=== PATIENT | male | born 1955 | race Caucasian/White ===

== ENCOUNTER → 2022-12-05 10:17 | Outpatient (BNVA) | payer MEDICARE, SELFPAY | PROVIDERS: PCP Physician Assistant Medical; Referring Provider Physician Assistant Medical; Visit Provider Internal Medicine | DX: I49.8 Other specified cardiac arrhythmias (principal); R00.2 Palpitations | CPT/HCPCS: 99202 ==

== ENCOUNTER 2022-12-28 14:02 | Outpatient (REF) | payer MEDICARE, SELFPAY ==
[2022-12-28 15:36] LABS: Anion Gap 15 (12-20); Blood Urea Nitrogen 19 mg/dL (9-16); Calcium 9.8 mg/dL (8.4-10.2); Carbon Dioxide 25 mmol/L (22-29); Chloride 106 mmol/L (96-108); Estimated Glomerular Filt Rate 55; Glucose Random 101 mg/dL (60-115); Potassium 4.8 mmol/L (3.3-5.1); Sodium 141 mmol/L (135-145)
== END 2022-12-28 14:03 | disposition home or self-care (01) ==
LOC: HO.LAB 14:02
PROVIDERS: PCP Physician Assistant Medical; Visit Provider Internal Medicine
DX: I49.8 Other specified cardiac arrhythmias (principal)
CPT/HCPCS: 36415; 80048

== ENCOUNTER → 2023-01-05 10:01 | Outpatient (REF) | payer MEDICARE, SELFPAY ==
--- NOTE | 2023-01-05 10:05 | CA_ITS ---
Transthoracic Echocardiogram Patient (Last, First, Middle): Rm Corona, Gender: Male Date of : 1955 Age: 67 Procedure Date: 01/05/2023 Procedure Type: Transthoracic Echocardiogram Location: OP Height: 180.34 cm Weight: 122.47 kg BSA: 2.40 m2 Heart Rate: bpm BP: 127 / 71 mmHg Cell Attendant: IMELDA Referring MD: Cosme Sanchez MD Command Center Officer: Sebastien Weaver MD Symptoms: I49.8 - Other specified cardiac arrhythmias Study Quality: Adequate ECG Rhythm: Sinus Conclusions: - 1. Normal LV systolic function with mild LVH with impaired relaxation filling pattern 2. Moderate to severe calcific aortic stenosis 3. Normal RV systolic pressure 4. No gross pericardial effusion Findings Left Ventricle Normal left ventricular size and systolic function. There is mildly increased left ventricular wall thickness. The visually estimated ejection fraction is between 60-65%. Spectral Doppler is indicative of an impaired relaxation filling pattern. E/E prime ratio is between 8 and 15 consistent with indeterminate filling pressures. Right Ventricle Normal right ventricular cavity size and systolic function. Atria The left atrium is normal in size. There is lipomatous hypertrophy of the interatrial septum. Interatrial shunt cannot be excluded. The right atrium is normal in size. Aortic Valve There is moderate calcification of the aortic valve. There is moderate thickening of the aortic valve. There is moderate to severe aortic valve stenosis. The mean gradient is 27 mmHg. The aortic valve area is 1.06 cm2. There is no aortic valve regurgitation. Dimensionless index is calculated at 0.28 Mitral Valve There is mild anterior and posterior mitral leaflet thickening. There is mild mitral annular calcification. There is trace mitral valve regurgitation. There is no mitral valve stenosis. Pulmonic Valve The pulmonic valve was not well visualized. Tricuspid Valve Likely normal tricuspid valve structure and function. There is mild tricuspid valve regurgitation. The right ventricular systolic pressure is 34 mmHg. Normal right atrial pressure. There is no evidence of pulmonary hypertension. Great Vessels All visible segments of the aorta are normal in size. The pulmonary artery was not well visualized. Venous The inferior vena cava is normal in size and collapses greater than 50% with inspiration. Pericardium/Pleural There is no evidence of pericardial effusion. Prior Study Comparison No prior study available for comparison. Measurements 2D Linear Measurements IVSd: 1.24 0.6-0.9/0.6-1.0 cm LVIDd: 4.38 3.9-5.3/4.2-5.9 cm LVIDd Index: 1.83 2.4-3.2/2.2-3.1 cm/m2 LVIDs: 2.88 2.0-3.6 cm LVPWd: 1.37 0.7-1.1 cm LA Diam: 2.80 2.7-3.8/3.0-4.0 cm LAIDs Index: 1.17 1.5-2.3 cm/m2 LV Mass: 267.80 67-162/88-224 g LV Mass Index: 111.59 43-95/49-115 g/m2 LVOT Diam: 2.20 3.0+(-)1.3 cm 2D Systolic Function EF 4C: 65.90 >55% EF 2C: 58.20 >55% EF BiP: 61.10 >55% Mitral Valve MV VTI: 0.55 MV Pk Terrence: 1.37 MV Mn Terrence: 0.89 MV Pk Grad: 8.00 MV Mn Grad: 4.00 MV Pk E: 1.14 MV PK A: 1.32 MV Decel Time: 360.00 E/A: 0.90 E'Lateral: 8.16 E'Medial: 7.29 E/E' Med: 15.60 E/E' Lat: 14.00 PHT: 105.00 MVA PHT: 2.10 MVA Continuity: 1.61 Decel Dupage: 3.17 Aortic Valve AoV Pk Terrence: 3.42 AoV Mn Terrence: 2.47 AoV VTI: 0.84 AoV Pk Grad: 47.00 Aov Mn Grad: 27.00 JUAN A Cont.VTI: 1.06 LVOT LVOT Pk Terrence: 0.88 LVOT Mn Terrence: 0.62 LVOT VTI: 0.24 LVOT Pk Grad: 3.00 LVOT Mn Grad: 2.00 LVOT Diam: 2.20 LVOT Area: 3.80 Diastolic Function MV Pk E: 1.14 MV Pk A: 1.32 E/A: 0.90 E'Medial: 7.29 E/E' Med: 15.60 E' Laterial: 8.16 E/E' Lat: 14.00 Right Ventricle TAPSE (mm): 19.80 TVS' Terrence: 12.40 Tricuspid Valve TR Pk Terrence: 2.78 TR Pk Grad: 31.00 RA Press: 3.00 RVSP: 34.00 Great Vessels Aorta Sinus of Valsalva: 3.35 2.0-3.[address] [place]: 2.45 1.7-3.4 cm Ao Asc: 3.40 2.1-3.4 cm Ao Arch: 2.90 Updated in Other Vendor System with Status of Final Sebastien Weaver MD electronically signed on 01/07/2023 12:49:06 PM with status of Final
--- NOTE | 2023-01-05 10:05 | HM_ITS ---
Cardiac event monitor Indication: Paroxysmal atrial fibrillation Technique: Patient was hooked up to cardiac event monitor on 01/05/2023 for total period of 30 days with a compliance rate of 96%. Findings: Baseline was normal sinus rhythm with no significant pauses. Minimal heart rate of 60 beats per minute maximum heart rate 170 beats per minute noted. No episodes of atrial fibrillation noted. There were occasional PACs noted with total burden of 1.3% and rare PVCs noted with total burden of less than 1%. There were few episodes of paroxysmal atrial tachycardia noted but very rare. Patient reported 3 events of irregular heartbeat that correlated with either with PVCs or PACs. Patient had 5 recordings of palpitations or skipped heartbeat that correlated with PVCs or PACs Patient 2 recordings of fast heart rate that correlated with sinus tachycardia Patient at 12 events without reported symptoms that correlated either with sinus rhythm or paroxysmal atrial tachycardia brief episodes of PVCs or PACs. Conclusion: 1. Baseline was normal sinus rhythm with no pauses 2. No significant atrial fibrillation noted 3. Patient reported multiple events of skipped heartbeats or irregular heartbeat that correlated with PACs or PVCs. [facility]
== END ==
LOC: HO.CARD 10:01
PROVIDERS: Visit Provider Internal Medicine
DX: I48.0 Paroxysmal atrial fibrillation (principal); I49.8 Other specified cardiac arrhythmias
CPT/HCPCS: 93270; 93306

== ENCOUNTER → 2023-01-05 10:05 | Outpatient (BNV) | payer MEDICARE, SELFPAY | PROVIDERS: Visit Provider Internal Medicine Cardiovascular Disease | DX: I49.3 Ventricular premature depolarization (principal) | CPT/HCPCS: 93272; 93306 ==

== ENCOUNTER 2023-03-14 13:27 | Outpatient (AMB) | payer MEDICARE, SELFPAY ==
[2023-03-14 13:34] VITALS: BP 118/74; PULSE 75; BMI 38.8
--- NOTE | 2023-03-14 13:34 | A.OFFVIS_ITS ---
Intake Vital Signs 03/14/23 13:34 Height 5 ft 11 in Weight 278 lb 3.574 oz BMI 38.8 BP 118/74 Blood Pressure Location Lt brachial Position Sitting Pulse 75 Intake Visit Reasons: 3 month follow up after testing Intake Note: follow up Correspondence School Instructor Required: No Accompanied by: Self / Same As Patient Allergies No Known Allergies Allergy (Verified 03/14/23 13:35) Medication List - Last Reconciled 03/14/23 by Cosme Sanchez MD aspirin 325 mg PO DAILY atorvastatin 80 mg PO DAILY blood sugar diagnostic (FreeStyle Lite Strips) As directed fluticasone propionate 50 mcg/actuation 0 mcg intranasal glipizide 10 mg PO BID ibuprofen-diphenhydramine cit 200-38 mg (Advil PM) 2 caps PO BEDTIME lisinopril 20 mg PO DAILY metformin 1,000 mg PO BID metoprolol tartrate 25 mg PO BID [id number] mcg (Centrum Men 50 Plus Minis) tabs PO DAILY pioglitazone 30 mg PO DAILY HPI HPI Comments History of Present Illness Details Rm returns for follow-up regarding palpitations. He states that he used to get palpitations the past but more recently much more frequently. His Apple watch apparently showed atrial fibrillation and that led to the referral. Patient himself does not have any history of coronary disease myocardial infarction or cardiomyopathy. He is morbidly obese. Listed to have obstructive sleep apnea but when I questioned him, he is not aware of it. Otherwise, with regard to palpitations, generally brief and nothing too prolonged. He can feel his heart pounding when he is resting. Then it seems that he was put on beta-blockers and that has improved his symptoms significantly. No clear-cut anginal-type symptoms. No known coronary disease but he has got numerous cardiovascular risk factors. Since last seen, he underwent a Holter monitor, echocardiogram as well as coronary CTA. [facility] Medical History (Updated 03/14/23 @ 14:29 by Cosme Sanchez MD) Atherosclerotic cardiovascular disease Essential hypertension Hyperlipidemia Morbid obesity HUBERT (obstructive sleep apnea) Type 2 diabetes mellitus Surgical History History of back surgery Family History Mother Cancer Father Cancer Social History Alcohol intake: never Patient Tobacco Use Status: Current everyday Tobacco user Tobacco use type: Cigar Years Smoked: 20 +/- Review of Systems Const Denies chills, Denies daytime sleepiness, Denies fatigue, Denies fever(s), Denies frequent falls, Denies night sweats, Denies snoring, Denies weakness, Denies weight gain and Denies weight loss Eyes Denies loss of vision ENT Denies dizziness and Denies hearing loss Card Denies chest pain, Denies chest pain with activity, Denies syncope, Denies rapid heart rate, Denies edema, Denies claudication, Denies leg edema, Denies lightheadedness, Denies palpitations, Denies dyspnea, Denies dyspnea on exertion and Denies orthopnea Resp Denies cough, Denies excessive phlegm production, Denies dyspnea, Denies dyspnea on exertion, Denies snoring and Denies wheezing GI Denies abdominal pain, Denies hematochezia, Denies change in bowel habits, Denies change in stool character, Denies heartburn, Denies nausea and Denies vomiting Denies hematuria, Denies dysuria and Denies urinary frequency Musc Denies arthralgias, Denies muscle weakness, Denies numbness and Denies tingling Skin/Breast Denies nail changes and Denies rash Neuro Denies Abnormal speech present, Denies dizziness, Denies syncope, Denies frequent falls, Denies loss of vision, Denies memory loss, Denies numbness, Denies tingling and Denies weakness Psych Denies depression and Denies memory loss Endo Denies fatigue and Denies palpitations Aller/Immun Denies wheezing Physical Exam Vital Signs: Last Vital Signs Pulse 75 03/14/23 13:34 BP 118/74 03/14/23 13:34 BMI result Body Mass Index 38.8 Const General: comfortable and no acute distress Orientation/consciousness: patient oriented x3 HEENT Other: Unremarkable Head: Yes normal to inspection Neck Neck: Yes normal visual inspection Chest Chest palpation & inspection: normal inspection of the chest Resp Auscultation: clear to auscultation bilaterally Cardio Palpation: normal PMI Heart sounds: S1 normal heart sound present, S2 normal heart sound present, no gallops, Murmur heart sound present systolic II/ and at the right sternal border and no rubs GI Palpation (GI): Soft to palpation Back/Spine/Pelvis Other: unremarkable Skin General skin exam: no rashes or lesions noted Neuro General: patient oriented x3 Speech: No Abnormal speech present Extrem General: Yes normal to inspection Psych Mental Status: mental status grossly normal Assessment & Plan Assessment & Plan (1) Atrial arrhythmia: Code(s): I49.8 - Other specified cardiac arrhythmias Plan: In the EKG from primary care physician's office, sinus rhythm with PACs. Reviewed the [employer] EKG strips in the patient's phone.? In the strip st arted as atrial fibrillation is only sinus rhythm with PACs and not atrial fibrillation.? However, there are other strips where the heart rate is in the 150s; narrow complex tachycardia. In the 30 day monitor, underlying rhythm was sinus. No clear cut evidence of atrial fibrillation. There were PACs/PVCs and short atrial runs. Findings discussed with patient and also showed strips. He can take metoprolol as it seems to help with symptoms a lot. (2) Non-rheumatic aortic stenosis: Code(s): I35.0 - Nonrheumatic aortic (valve) stenosis Plan: In the echocardiogram, there is suggestion of aortic stenosis. Mean gradient was 27 mm Hg and calculated valve area of 1.06 sq cm. Thought to be representing moderate to severe aortic stenosis. Discussed about this. He does not have any overt symptoms. We will check echocardiogram in 6 months. (3) Atherosclerotic cardiovascular disease: Code(s): I25.10 - Atherosclerotic heart disease of [place] coronary artery without angina pectoris Plan: He underwent coronary CTA. Overall, mild to moderate coronary stenosis in different regions. Nothing clearly obstructive. Take low-dose aspirin. He takes full-dose aspirin and advised to switch. Continue high-dose statins. Will need to get lipids from PCP. (4) Morbid obesity: Code(s): E66.01 - Morbid (severe) obesity due to excess calories Plan: Explain the importance of weight loss and he understands. Plan Follow-up in 6 months. In the interim, he will call with concerns. Orders: Orders CA echo transthoracic complete 6 Months I35.0 - Nonrheumatic aortic (valve) stenosis Coding Level of Care Code Est Pt Level 4 (33761) Diagnoses Atrial arrhythmia I49.8 Non-rheumatic aortic stenosis I35.0 Atherosclerotic cardiovascular disease I25.10 Morbid obesity E66.01
== END 2023-03-14 13:55 | disposition home or self-care (01) ==
PROVIDERS: Visit Provider Internal Medicine
DX: I49.8 Other specified cardiac arrhythmias (principal); I35.0 Nonrheumatic aortic (valve) stenosis; I25.10 Atherosclerotic heart disease of native coronary artery without angina pectoris; E66.01 Morbid (severe) obesity due to excess calories
CPT/HCPCS: 99214

== ENCOUNTER → 2023-03-14 13:27 | Outpatient (BNVA) | payer MEDICARE, SELFPAY | PROVIDERS: Visit Provider Internal Medicine | DX: I49.8 Other specified cardiac arrhythmias (principal); I35.0 Nonrheumatic aortic (valve) stenosis; I25.10 Atherosclerotic heart disease of native coronary artery without angina pectoris; E66.01 Morbid (severe) obesity due to excess calories; Z68.38 Body mass index [BMI] 38.0-38.9, adult | CPT/HCPCS: 99212 ==

== ENCOUNTER → 2023-09-14 12:50 | Outpatient (REF) | payer MEDICARE, SELFPAY ==
--- NOTE | 2023-09-14 12:52 | CA_ITS ---
Transthoracic Echocardiogram Patient (Last, First, Middle): Rm Corona, Gender: Male Date of : 1955 Age: 68 Procedure Date: 09/14/2023 Procedure Type: Transthoracic Echocardiogram Location: OP Height: 180. cm Weight: 124.74 kg BSA: 2.41 m2 Heart Rate: 66 bpm BP: 115 / 80 mmHg Toe Former Stitchdowns: PADMINI Weber MD: Cosme Sanchez MD Internet Marketing Specialist: Sebastien Weaver MD Symptoms: I35.0 - Nonrheumatic aortic (valve) stenosis Study Quality: Fair ECG Rhythm: Sinus Conclusions: - 1. Normal LV ejection fraction of 60-65% with impaired relaxation filling pattern and elevated filling pressures 2. Moderate to severe aortic stenosis with valve area of 1.03 centimeters sq and mean gradient of 32 mmHg 3. Normal RV systolic pressure 4. Upper limits of normal ascending aortic size 5. Mildly dilated left atrium 6. No pericardial effusion Findings Left Ventricle Normal left ventricular size, thickness, and systolic function. The visually estimated ejection fraction is between 60-65%. Spectral Doppler is indicative of an impaired relaxation filling pattern. Elevated filling pressures. E/E prime ratio is >15, consistent with elevated filling pressures. Peak GLS is -15.5%, which is mildly reduced. Right Ventricle Normal right ventricular cavity size and systolic function. Atria The left atrium is mildly dilated. There is no evidence of interatrial shunt. The right atrium is likely dilated. Aortic Valve There is moderate calcification of the aortic valve. There is mild thickening of the aortic valve. There is moderate to severe aortic valve stenosis. The peak aortic gradient is 50 mmHg.The mean gradient is 32 mmHg. The aortic valve area is 1.03 cm2. There is no aortic valve regurgitation. Mitral Valve There is mild anterior and posterior mitral leaflet thickening. There is trace mitral valve regurgitation. There is no mitral valve stenosis. Pulmonic Valve The pulmonic valve is likely normal. There is trace pulmonic valve regurgitation. Tricuspid Valve Normal tricuspid valve structure. There is trace tricuspid valve regurgitation. The right ventricular systolic pressure is normal. The right ventricular systolic pressure is 22 mmHg. Normal right atrial pressure. There is no evidence of pulmonary hypertension. Venous The inferior vena cava is normal in size and collapses greater than 50% with inspiration. Pericardium/Pleural There is no evidence of pericardial effusion. Prior Study Comparison No significant change compared to prior study dated: 01/05/2023. Measurements 2D Linear Measurements IVSd: 1.10 0.6-0.9/0.6-1.0 cm LVIDd: 5.22 3.9-5.3/4.2-5.9 cm LVIDd Index: 2.17 2.4-3.2/2.2-3.1 cm/m2 LVIDs: 3.38 2.0-3.6 cm LVPWd: 1.07 0.7-1.1 cm LA Diam: 4.10 2.7-3.8/3.0-4.0 cm LAIDs Index: 1.70 1.5-2.3 cm/m2 LV Mass: 271.80 67-162/88-224 g LV Mass Index: 112.78 43-95/49-115 g/m2 LVOT Diam: 2.40 3.0+(-)1.3 cm 2D Systolic Function EF 4C: 65.30 >55% EF 2C: 54.20 >55% EF BiP: 60.90 >55% Mitral Valve MV Pk E: 1.25 MV PK A: 1.41 MV Decel Time: 338.00 E/A: 0.90 E'Lateral: 6.85 E'Medial: 5.44 E/E' Med: 23.00 E/E' Lat: 18.20 PHT: 99.00 MVA PHT: 2.22 Decel Hyde: 3.70 Aortic Valve AoV Pk Terrence: 3.54 AoV Mn Terrence: 2.72 AoV VTI: 0.95 AoV Pk Grad: 50.00 Aov Mn Grad: 32.00 JUAN A Cont.VTI: 1.03 LVOT LVOT Pk Terrence: 0.86 LVOT Mn Terrence: 0.61 LVOT VTI: 0.22 LVOT Pk Grad: 3.00 LVOT Mn Grad: 2.00 LVOT Diam: 2.40 LVOT Area: 4.52 Diastolic Function MV Pk E: 1.25 MV Pk A: 1.41 E/A: 0.90 E'Medial: 5.44 E/E' Med: 23.00 E' Laterial: 6.85 E/E' Lat: 18.20 Right Ventricle TAPSE (mm): 25.40 TVS' Terrence: 11.00 Tricuspid Valve TR Pk Terrence: 2.20 TR Pk Grad: 19.00 RA Press: 3.00 RVSP: 22.00 Great Vessels Aorta Sinus of Valsalva: 3.80 2.0-3.5 cm Ao Asc: 3.50 2.1-3.4 cm Pulmonary Valve PV Pk Terrence: 1.10 Peak PV Grad: 5.00 Updated in Other Vendor System with Status of Final Sebastien Weaver MD electronically signed on 09/15/2023 1:54:58 PM with status of Final
== END ==
LOC: HO.CARD 12:50
PROVIDERS: PCP Physician Assistant Medical; Visit Provider Internal Medicine
DX: I35.0 Nonrheumatic aortic (valve) stenosis (principal)
CPT/HCPCS: 93306; 93356

== ENCOUNTER → 2023-09-14 12:52 | Outpatient (BNV) | payer MEDICARE, SELFPAY | PROVIDERS: PCP Physician Assistant Medical; Visit Provider Internal Medicine Cardiovascular Disease | DX: I35.0 Nonrheumatic aortic (valve) stenosis (principal) | CPT/HCPCS: 93306 ==

== ENCOUNTER 2023-09-20 13:30 | Outpatient (AMB) | payer MEDICARE, SELFPAY ==
--- NOTE | 2023-09-20 13:32 | MHC.OFFVIS ---
Intake Vital Signs 09/20/23 13:34 Height 5 ft 11 in Weight 282 lb 3.067 oz BMI 39.4 BP 136/84 Blood Pressure Location Lt brachial Position Sitting Pulse 74 Intake Visit Reasons: 6 mth f/up s/p echo Intake Note: 6 month follow-up with ekg after echo feeling good Certified Ophthalmic Surgical Assistant Required: No Allergies No Known Allergies Allergy (Verified 03/14/23 13:35) Medication List - Last Reconciled 09/20/23 by Cosme Sanchez MD aspirin 325 mg PO DAILY atorvastatin 80 mg PO DAILY blood sugar diagnostic (FreeStyle Lite Strips) As directed fluticasone propionate 50 mcg/actuation 0 mcg intranasal gabapentin 300 mg PO BEDTIME glipizide 10 mg PO BID ibuprofen-diphenhydramine cit 200-38 mg (Advil PM) 2 caps PO BEDTIME lisinopril 20 mg PO DAILY metformin 1,000 mg PO BID metoprolol tartrate 50 mg PO BID [id number] mcg (Centrum Minis Men 50 Plus) tabs PO DAILY pioglitazone 30 mg PO DAILY HPI HPI Comments History of Present Illness Details Rm returns for follow-up for various concerns including atrial arrhythmia, aortic stenosis as well as coronary disease. Overall, he feels generally fine. No clear-cut angina or shortness of breath. He has had palpitations in the past but they are fairly controlled. He is on beta-blockers for the same. [facility] Medical History (Updated 03/14/23 @ 14:29 by Cosme Sanchez MD) Atherosclerotic cardiovascular disease Morbid obesity HUBERT (obstructive sleep apnea) Hyperlipidemia Essential hypertension Type 2 diabetes mellitus Surgical History History of back surgery Family History Mother Cancer Father Cancer Social History Alcohol intake: never Patient Tobacco Use Status: Current everyday Tobacco user Tobacco use type: Cigar Years Smoked: 20 +/- Review of Systems Const All systems reviewed & are unremarkable except as noted in HPI and below Reports as per HPI and Reports no additional complaints Eyes Reports as per HPI and Denies no additional complaints ENT Denies no additional complaints and Reports as per HPI Card Reports as per HPI, Reports no additional complaints, Denies acrocyanosis, Denies chest pain, Denies leg edema, Denies lightheadedness, Denies palpitations and Denies dyspnea Resp Reports as per HPI, Denies no additional complaints and Denies dyspnea GI Reports as per HPI and Denies no additional complaints Reports no additional complaints and Reports as per HPI Musc Reports no additional complaints and Reports as per HPI Skin/Breast Reports system reviewed and no additional complaints, except as documented Neuro Reports no additional complaints and Reports as per HPI Psych Reports no additional complaints and Reports as per HPI Endo Reports no additional complaints, Reports as per HPI and Denies palpitations Ranjit/Lymph Reports no additional complaints and Reports as per HPI Aller/Immun Reports no additional complaints and Reports as per HPI Physical Exam Vital Signs: Last Vital Signs Pulse 74 09/20/23 13:34 BP 136/84 09/20/23 13:34 BMI result Body Mass Index 39.4 Const General: comfortable and no acute distress Orientation/consciousness: patient oriented x3 HEENT Other: Unremarkable Head: Yes normal to inspection Neck Neck: Yes normal visual inspection Chest Chest palpation & inspection: normal inspection of the chest Resp Auscultation: clear to auscultation bilaterally Cardio Palpation: normal PMI Heart sounds: S1 normal heart sound present, S2 normal heart sound present, no gallops, Murmur heart sound present systolic III/ and at the right sternal border and no rubs GI Palpation (GI): Soft to palpation Back/Spine/Pelvis Other: unremarkable Skin General skin exam: no rashes or lesions noted Neuro General: patient oriented x3 Extrem General: Yes normal to inspection Psych Mental Status: mental status grossly normal Office Procedures EKG Details: EKG with sinus rhythm at 74/Min; no significant ST-T changes and otherwise [place]remarkable[place]. [id number], Complete Assessment & Plan Assessment & Plan (1) Atrial arrhythmia: Code(s): I49.8 - Other specified cardiac arrhythmias Plan: In the EKG from primary care physician's office, sinus rhythm with PACs. Rare episodes of narrow complex tachycardia in the smart watch tracings, but very brief and only lasting seconds. Nothing in the last few months. In the 30 day monitor, underlying rhythm was sinus. No clear cut evidence of atrial fibrillation. There were PACs/PVCs and short atrial runs. With beta-blockers, these are significantly improved. May continue. So far, no clear-cut evidence of atrial fibrillation but with his obesity, certainly possible. Will need to monitor. Another Holter in 6 months or so. (2) Non-rheumatic aortic stenosis: Code(s): I35.0 - Nonrheumatic aortic (valve) stenosis Plan: In the echocardiogram, mean gradient across aortic valve was 32 mm Hg with a peak of 50 mm Hg. Calculated valve area of 1.03 sq cm. Overall, reported as moderate to severe aortic stenosis. LVEF is preserved at 60-65%. He does not have any overt symptoms at this time. Discussed about aortic stenosis, natural course, symptoms, treatment options extra. He understands. We will continue to monitor clinically and by echocardiogram. Repeat in 6 months. Eventually, possibly TAVR as he does not want any open heart procedures. (3) Atherosclerotic cardiovascular disease: Code(s): I25.10 - Atherosclerotic heart disease of [place] coronary artery without angina pectoris Plan: He underwent coronary CTA. Overall, mild to moderate coronary stenosis in different regions. Nothing clearly obstructive. He continues to be on full-dose aspirin but does not want to switch to low-dose and discussed last time and today. Continue statins. Last LDL 48 mg/dL. (4) Morbid obesity: Code(s): E66.01 - Morbid (severe) obesity due to excess calories Plan: He is quite obese. However, it seems he has been this way for a long time. Not clear how much he can do to lose weight. Orders: Orders CA echo transthoracic complete 6 Months I35.0 - Nonrheumatic aortic (valve) stenosis ECG 7 day holter monitor 6 Months I49.8 - Other specified cardiac arrhythmias Coding Level of Care Code Est Pt Level 4 (04566) Diagnoses Atrial arrhythmia I49.8 Non-rheumatic aortic stenosis I35.0 Atherosclerotic cardiovascular disease I25.10 Morbid obesity E66.01 CPT Codes EKG - CPT: 94841-[id number], Complete ([id number])
[2023-09-20 13:34] VITALS: BP 136/84; PULSE 74; BMI 39.4
== END 2023-09-20 13:58 | disposition home or self-care (01) ==
PROVIDERS: Visit Provider Internal Medicine
DX: I49.8 Other specified cardiac arrhythmias (principal); I35.0 Nonrheumatic aortic (valve) stenosis; I25.10 Atherosclerotic heart disease of native coronary artery without angina pectoris; E66.01 Morbid (severe) obesity due to excess calories
CPT/HCPCS: 93010; 99214

== ENCOUNTER → 2023-09-20 13:30 | Outpatient (BNVA) | payer MEDICARE, SELFPAY | PROVIDERS: Visit Provider Internal Medicine | DX: I49.8 Other specified cardiac arrhythmias (principal); I35.0 Nonrheumatic aortic (valve) stenosis; I25.10 Atherosclerotic heart disease of native coronary artery without angina pectoris; E66.01 Morbid (severe) obesity due to excess calories; Z68.39 Body mass index [BMI] 39.0-39.9, adult | CPT/HCPCS: 93005; 99212 ==

== ENCOUNTER → 2024-03-05 13:53 | Outpatient (REF) | payer MEDICARE, SELFPAY ==
--- NOTE | 2024-03-05 13:57 | CA_ITS ---
Transthoracic Echocardiogram Patient (Last, First, Middle): Rm Corona, Gender: Male Date of : 1955 Age: 69 Procedure Date: 03/05/2024 Procedure Type: Transthoracic Echocardiogram Location: OP Height: 180.34 cm Weight: 127.01 kg BSA: 2.43 m2 Heart Rate: bpm BP: 124 / 78 mmHg Instrumentation Manager: TO Referring MD: Cosme Sanchez MD Symptoms: I35.0 - Nonrheumatic aortic (valve) stenosis Study Quality: Fair, contrast ECG Rhythm: Sinus Conclusions: - The left ventricular systolic function is normal. The visually estimated ejection fraction is between 55-60%. - There is moderate to severe aortic valve stenosis. Findings Procedure Information Contrast agent, definity, is being given per protocol without apparent complications. Left Ventricle Normal left ventricular cavity size. There is mildly increased left ventricular wall thickness. The left ventricular systolic function is normal. The visually estimated ejection fraction is between 55-60%. There is no evidence of regional wall motion abnormalities. E/E prime ratio is >15, consistent with elevated filling pressures. Evidence suggests grade I (mild) diastolic dysfunction. Right Ventricle Mildly increased right ventricular cavity size. There is normal right ventricular systolic function. Atria Mild biatrial enlargement. Aortic Valve There is moderate calcification of the aortic valve. There is moderate to severe aortic valve stenosis. The peak aortic velocity is 3.72 m/s with a calculated peak gradient of 55 mmHg. The mean gradient is 33 mmHg. The aortic valve area is 1.02 cm2. There is no aortic valve regurgitation. Mitral Valve There is mild mitral annular calcification. There is trace mitral valve regurgitation. There is no mitral valve stenosis. Pulmonic Valve The pulmonic valve is likely normal. Tricuspid Valve There is trace tricuspid valve regurgitation. Mild pulmonary hypertension is present. Great Vessels The asc aorta and aortic arch are normal in size. Venous The inferior vena cava is dilated and collapses greater than 50% with inspiration. Pericardium/Pleural There is no evidence of pericardial effusion. Prior Study Comparison No significant change compared to prior study dated: 09/14/2023. Measurements 2D Linear Measurements IVSd: 1.14 0.6-0.9/0.6-1.0 cm LVIDd: 5.46 3.9-5.3/4.2-5.9 cm LVIDd Index: 2.25 2.4-3.2/2.2-3.1 cm/m2 LVIDs: 3.72 2.0-3.6 cm LVPWd: 1.07 0.7-1.1 cm LA Diam: 4.30 2.7-3.8/3.0-4.0 cm LAIDs Index: 1.77 1.5-2.3 cm/m2 LV Mass: 299.98 67-162/88-224 g LV Mass Index: 123.45 43-95/49-115 g/m2 LVOT Diam: 2.40 3.0+(-)1.3 cm 2D Systolic Function EF 4C: 57.20 >55% Mitral Valve MV VTI: 0.48 MV Pk Terrence: 1.37 MV Mn Terrence: 0.82 MV Pk Grad: 8.00 MV Mn Grad: 3.00 MV Pk E: 1.13 MV PK A: 1.17 MV Decel Time: 333.00 E/A: 1.00 E'Lateral: 6.09 E'Medial: 5.22 E/E' Med: 21.60 E/E' Lat: 18.60 PHT: 97.00 MVA PHT: 2.27 MVA Continuity: 2.14 Decel [place]: 3.40 Aortic Valve AoV Pk Terrence: 3.72 AoV Mn Terrence: 2.74 AoV VTI: 1.01 AoV Pk Grad: 55.00 Aov Mn Grad: 33.00 JUAN A Cont.VTI: 1.02 LVOT LVOT Pk Terrence: 0.88 LVOT Mn Terrence: 0.56 LVOT VTI: 0.23 LVOT Pk Grad: 3.00 LVOT Mn Grad: 1.00 LVOT Diam: 2.40 LVOT Area: 4.52 Diastolic Function MV Pk E: 1.13 MV Pk A: 1.17 E/A: 1.00 E'Medial: 5.22 E/E' Med: 21.60 E' Laterial: 6.09 E/E' Lat: 18.60 Right Ventricle TAPSE (mm): 23.10 TVS' Terrence: 12.70 Tricuspid Valve TR Pk Terrence: 2.54 TR Pk Grad: 26.00 RA Press: 15.00 RVSP: 41.00 Great Vessels Aorta Sinus of Valsalva: 3.61 2.0-3.5 cm Ao Asc: 3.70 2.1-3.4 cm Ao Arch: 2.80 Updated in Other Vendor System with Status of Final Cosme Sanchez MD electronically signed on 03/07/2024 4:25:45 PM with status of Final
--- NOTE | 2024-03-05 13:57 | HM_ITS ---
* Total monitoring time 7 days. * Underlying rhythm is sinus with an average rate of 68/Min. * Rare supraventricular ectopy. * Rare ventricular ectopy. * No significant pauses or AV blocks. * Patient marker used once in association with sinus rhythm. * No diary events. MTDD
== END ==
LOC: HO.CARD 13:53
PROVIDERS: PCP Physician Assistant Medical; Visit Provider Internal Medicine
DX: I49.8 Other specified cardiac arrhythmias (principal)
CPT/HCPCS: 93242; 93306; Q9957

== ENCOUNTER → 2024-03-05 13:57 | Outpatient (BNV) | payer MEDICARE, SELFPAY | PROVIDERS: PCP Physician Assistant Medical; Visit Provider Internal Medicine | DX: I47.10 Supraventricular tachycardia, unspecified (principal) | CPT/HCPCS: 93244; 93306 ==

== ENCOUNTER 2024-03-19 13:36 | Outpatient (AMB) | payer MEDICARE, SELFPAY ==
--- NOTE | 2024-03-19 13:39 | MHC.OFFVIS ---
Vital Signs 03/19/24 13:40 Height 5 ft 11 in Weight 288 lb 12.889 oz BMI 40.3 BP 114/66 Blood Pressure Location Lt brachial Position Sitting Pulse 68 Pulse Source Pulse Oximeter Intake Visit Reasons: 6 mth s/p; echo/ holter Drawer In Required: No Accompanied by: Self / Same As Patient Allergies No Known Allergies Allergy (Verified 03/14/23 13:35) Medication List - Last Reconciled 03/19/24 by Cosme Sanchez MD aspirin 325 mg PO DAILY atorvastatin 80 mg PO DAILY blood sugar diagnostic (FreeStyle Lite Strips) As directed glipizide 10 mg PO BID ibuprofen-diphenhydramine cit 200-38 mg (Advil PM) 2 caps PO BEDTIME lisinopril 20 mg PO DAILY metformin 1,000 mg PO BID metoprolol tartrate 50 mg PO BID [id number] 480-28-126-150 mcg (Centrum Minis Men 50 Plus) tabs PO DAILY pioglitazone 30 mg PO DAILY pregabalin 150 mg PO BID HPI Comments Details: Rm returns for follow-up for various concerns including atrial arrhythmia, aortic stenosis as well as coronary disease. Overall, he states he is feeling good. No complaints like angina or shortness of breath or in fact anything else cardiac related. Palpitations are also well controlled. COUNTS INCLUDE 234 BEDS AT THE [facility] Medical History (Updated 03/14/23 @ 14:29 by Cosme Sanchez MD) Atherosclerotic cardiovascular disease Morbid obesity HUBERT (obstructive sleep apnea) Hyperlipidemia Essential hypertension Type 2 diabetes mellitus Surgical History History of back surgery Family History Mother Cancer Father Cancer Social History Alcohol intake: never Patient Tobacco Use Status: Current everyday Tobacco user Tobacco use type: Cigar Years Smoked: 20 +/- Review of Systems Const Denies chills, Denies fatigue, Denies fever(s), Denies weight gain and Denies weight loss ENT Denies dizziness Card Denies chest pain, Denies leg edema, Denies lightheadedness, Denies palpitations, Denies dyspnea on exertion, Denies orthopnea and Denies other Resp Denies cough and Denies dyspnea on exertion GI Denies hematochezia and Denies change in stool character Musc Denies abnormal gait, Denies muscle weakness, Denies numbness, Denies radiating pain into limb and Denies tingling Neuro Denies abnormal gait, Denies dizziness, Denies numbness and Denies tingling Endo Denies fatigue and Denies palpitations Physical Exam Vital Signs: Last Vital Signs Pulse 68 03/19/24 13:40 BP 114/66 03/19/24 13:40 BMI result Body Mass Index 40.3 Const General: comfortable and no acute distress Orientation/consciousness: patient oriented x3 HEENT Other: Unremarkable Head: Yes normal to inspection Neck Neck: Yes normal visual inspection Chest Chest palpation & inspection: normal inspection of the chest Resp Auscultation: clear to auscultation bilaterally Cardio Palpation: normal PMI Heart sounds: S1 normal heart sound present, S2 normal heart sound present, no gallops, Murmur heart sound present systolic III/ and at the right sternal border and no rubs GI Palpation (GI): Soft to palpation Back/Spine/Pelvis Other: unremarkable Skin General skin exam: no rashes or lesions noted Neuro General: patient oriented x3 Extrem General: Yes normal to inspection Psych Mental Status: mental status grossly normal Assessment & Plan Assessment & Plan (1) Non-rheumatic aortic stenosis: Code(s): I35.0 - Nonrheumatic aortic (valve) stenosis Category: Medical Plan: In the most recent echocardiogram, mean gradient across aortic valve was 33 mm Hg with a calculated valve area of 1 cm2. Overall, moderate to severe aortic stenosis. Preserved LVEF at 55-60%. Overall, similar to prior. Clinically, he has got absolutely no symptoms. Eventually, TAVR. We will recheck echo in 6 months. In the interim, advised to contact us with any cardiac symptoms like shortness of breath. (2) Atrial arrhythmia: Code(s): I49.8 - Other specified cardiac arrhythmias Category: Medical Plan: In the EKG from primary care physician's office, sinus rhythm with PACs. Rare episodes of narrow complex tachycardia in the smart watch tracings, but very brief and only lasting seconds. Nothing in the last few months. In the 30 day monitor, underlying rhythm was sinus. No clear cut evidence of atrial fibrillation. There were PACs/PVCs and short atrial runs. Repeat Holter is again unremarkable. Continue beta-blockers. (3) Atherosclerotic cardiovascular disease: Code(s): I25.10 - Atherosclerotic heart disease of [place] coronary artery without angina pectoris Category: Medical Plan: Coronary CTA with mild to moderate coronary stenosis in different regions. Nothing clearly obstructive. Advised to switch from full-dose low-dose aspirin to decrease bleeding risk. Continue statins. Last LDL 48 mg/dL. (4) Morbid obesity: Code(s): E66.01 - Morbid (severe) obesity due to excess calories Category: Medical Plan: Long-term issue and it has been this way. Orders: Orders CA echo transthoracic complete 6 Months I35.0 - Nonrheumatic aortic (valve) stenosis Coding Level of Care Code Est Pt Level 4 (92925) Diagnoses Non-rheumatic aortic stenosis I35.0 Atrial arrhythmia I49.8 Atherosclerotic cardiovascular disease I25.10 Morbid obesity E66.01
[2024-03-19 13:40] VITALS: BP 114/66; PULSE 68; BMI 40.3
== END 2024-03-19 13:56 | disposition home or self-care (01) ==
PROVIDERS: PCP Physician Assistant Medical; Visit Provider Internal Medicine
DX: I35.0 Nonrheumatic aortic (valve) stenosis (principal); I49.8 Other specified cardiac arrhythmias; I25.10 Atherosclerotic heart disease of native coronary artery without angina pectoris; E66.01 Morbid (severe) obesity due to excess calories
CPT/HCPCS: 99214

== ENCOUNTER → 2024-03-19 13:36 | Outpatient (BNVA) | payer MEDICARE, SELFPAY | PROVIDERS: PCP Physician Assistant Medical; Visit Provider Internal Medicine | DX: I25.10 Atherosclerotic heart disease of native coronary artery without angina pectoris (principal); I49.8 Other specified cardiac arrhythmias; I35.0 Nonrheumatic aortic (valve) stenosis; E66.01 Morbid (severe) obesity due to excess calories; Z68.41 Body mass index [BMI] 40.0-44.9, adult | CPT/HCPCS: 99212 ==

== ENCOUNTER → 2024-09-03 14:07 | Outpatient (REF) | payer MEDICARE, SELFPAY ==
--- NOTE | 2024-09-03 14:10 | CA_ITS ---
Transthoracic Echocardiogram Patient (Last, First, Middle): Rm Corona, Gender: Male Date of : 1955 Age: 69 Procedure Date: 09/03/2024 Procedure Type: Transthoracic Echocardiogram Location: OP Height: 180.34 cm Weight: 136.08 kg BSA: 2.51 m2 Heart Rate: 66 bpm BP: 138 / 80 mmHg Chair Pad Maker: PADMINI Referring MD: Cosme Sanchez MD Sped Teacher: Sebastien Weaver MD Symptoms: I35.0 - Nonrheumatic aortic (valve) stenosis Study Quality: Fair ECG Rhythm: Sinus Conclusions: - 1. Normal LV ejection fraction of 60 65% with mild LVH with impaired relaxation filling pattern 2. Severe aortic stenosis with mean gradient of 46 mm Hg 3. Normal RV systolic pressure 4. Mildly dilated ascending aorta at 3.7 cm 5. No gross pericardial effusion Findings Left Ventricle Normal left ventricular size and systolic function. There is mildly increased left ventricular wall thickness. The visually estimated ejection fraction is between 60-65%. Spectral Doppler is indicative of an impaired relaxation filling pattern. Right Ventricle Normal right ventricular cavity size and systolic function. Atria The left atrium is normal in size. There is no evidence of interatrial shunt. The right atrium is normal in size. Aortic Valve There is moderate calcification of the aortic valve. There is severe aortic valve stenosis. The peak aortic gradient is 71 mmHg.The mean gradient is 46 mmHg. The aortic valve area is 0.90 cm2. There is no aortic valve regurgitation. Bicuspid aortic valve can not be entirely ruled out Mitral Valve There is mild anterior and posterior mitral leaflet thickening. There is mild mitral annular calcification. There is trace mitral valve regurgitation. There is no mitral valve stenosis. Pulmonic Valve The pulmonic valve was not well visualized. Tricuspid Valve Likely normal tricuspid valve structure and function. There is trace tricuspid valve regurgitation. The right ventricular systolic pressure is normal. The right ventricular systolic pressure is 30 mmHg. Normal right atrial pressure. There is no evidence of pulmonary hypertension. Great Vessels The pulmonary artery was not well visualized. There is mild dilatation of the ascending aorta measuring 3.70 cm. Venous The inferior vena cava is normal in size and collapses greater than 50% with inspiration. Pericardium/Pleural There is no evidence of pericardial effusion. Prior Study Comparison Changes noted compared to prior study dated: 03/05/2024. aortic stenosis is severe Measurements 2D Linear Measurements IVSd: 1.27 0.6-0.9/0.6-1.0 cm LVIDd: 4.16 3.9-5.3/4.2-5.9 cm LVIDd Index: 1.66 2.4-3.2/2.2-3.1 cm/m2 LVIDs: 2.81 2.0-3.6 cm LVPWd: 1.14 0.7-1.1 cm LA Diam: 4.60 2.7-3.8/3.0-4.0 cm LAIDs Index: 1.83 1.5-2.3 cm/m2 LV Mass: 220.07 67-162/88-224 g LV Mass Index: 87.68 43-95/49-115 g/m2 LVOT Diam: 2.20 3.0+(-)1.3 cm 2D Systolic Function EF 4C: 65.00 >55% EF 2C: 56.70 >55% EF BiP: 60.80 >55% Mitral Valve MV Pk E: 1.29 MV PK A: 1.38 MV Decel Time: 312.00 E/A: 0.90 E'Lateral: 7.07 E'Medial: 4.68 E/E' Med: 27.60 E/E' Lat: 18.20 PHT: 91.00 MVA PHT: 2.42 Decel [place]: 4.12 Aortic Valve AoV Pk Terrence: 3.97 AoV Mn Terrence: 3.08 AoV VTI: 0.85 AoV Pk Grad: 71.00 Aov Mn Grad: 46.00 JUAN A Cont.VTI: 0.90 LVOT LVOT Pk Terrence: 0.96 LVOT Mn Terrence: 0.74 LVOT VTI: 0.28 LVOT Pk Grad: 4.00 LVOT Mn Grad: 2.00 LVOT Diam: 2.20 LVOT Area: 3.80 Diastolic Function MV Pk E: 1.29 MV Pk A: 1.38 E/A: 0.90 E'Medial: 4.68 E/E' Med: 27.60 E' Laterial: 7.07 E/E' Lat: 18.20 Right Ventricle TAPSE (mm): 22.50 TVS' Terrence: 11.90 Tricuspid Valve TR Pk Terrence: 2.34 TR Pk Grad: 22.00 RA Press: 8.00 RVSP: 30.00 Great Vessels Aorta Sinus of Valsalva: 3.40 2.0-3.5 cm Ao Asc: 3.70 2.1-3.4 cm Pulmonary Valve PV Pk Terrence: 1.04 Peak PV Grad: 4.00 Updated in Other Vendor System with Status of Final Sebastien Weaver MD electronically signed on 09/04/2024 3:21:48 PM with status of Final
== END ==
LOC: HO.CARD 14:07
PROVIDERS: PCP Physician Assistant Medical; Visit Provider Internal Medicine
DX: I35.0 Nonrheumatic aortic (valve) stenosis (principal)
CPT/HCPCS: 93306

== ENCOUNTER → 2024-09-03 14:10 | Outpatient (BNV) | payer MEDICARE, SELFPAY | PROVIDERS: PCP Physician Assistant Medical; Visit Provider Internal Medicine Cardiovascular Disease | DX: I35.0 Nonrheumatic aortic (valve) stenosis (principal); I34.81 Nonrheumatic mitral (valve) annulus calcification | CPT/HCPCS: 93306 ==

== ENCOUNTER 2024-09-19 13:41 | Outpatient (AMB) | payer MEDICARE, SELFPAY ==
--- NOTE | 2024-09-19 13:48 | A.OFFVIS_ITS ---
Vital Signs 09/19/24 13:49 Height 5 ft 11 in Weight 308 lb 10.354 oz BMI 43.0 BP 130/70 Blood Pressure Location Lt brachial Position Sitting Pulse 73 Pulse Source Monitor Intake Visit Reasons: 6 mth s/p echo [employer]visor [employer] Required: No Accompanied by: Self / Same As Patient Allergies No Known Allergies Allergy (Verified 03/14/23 13:35) Medication List - Last Reconciled 09/19/24 by Cosme Sanchez MD aspirin (Adult Low Dose Aspirin) 81 mg PO DAILY atorvastatin 80 mg PO DAILY blood sugar diagnostic (FreeStyle Lite Strips) As directed glipizide 5 mg PO BID ibuprofen-diphenhydramine cit 200-38 mg (Advil PM) 2 caps PO BEDTIME lisinopril 20 mg PO DAILY metformin 1,000 mg PO BID metoprolol tartrate 50 mg PO BID [id number]-[id number] 068-18-338-150 mcg (Centrum Minis Men 50 Plus) tabs PO DAILY pioglitazone 30 mg PO DAILY pregabalin 150 mg PO BID HPI Comments Details: Rm returns for follow-up for various concerns including atrial arrhythmia, aortic stenosis as well as coronary disease. He states that he gets short of breath with activity and that is a new problem. Whenever he goes upstairs extra, he states he feels short of breath. No angina. [facility] Medical History (Updated 03/14/23 @ 14:29 by Cosme Sanchez MD) Atherosclerotic cardiovascular disease Morbid obesity HUBERT (obstructive sleep apnea) Hyperlipidemia Essential hypertension Type 2 diabetes mellitus Surgical History History of back surgery Family History Mother Cancer Father Cancer Social History Alcohol intake: never Patient Tobacco Use Status: Current everyday Tobacco user Tobacco use type: Cigar Years Smoked: 20 +/- Review of Systems Const Denies chills, Denies fatigue, Denies fever(s), Denies frequent falls, Denies weakness, Denies weight gain and Denies weight loss ENT Denies dizziness Card Denies chest pain, Denies leg edema, Denies lightheadedness, Denies palpitations, Denies dyspnea and Denies dyspnea on exertion Resp Denies cough, Denies dyspnea and Denies dyspnea on exertion GI Denies hematochezia Musc Denies abnormal gait, Denies muscle weakness, Denies numbness, Denies radiating pain into limb and Denies tingling Neuro Denies abnormal gait, Denies dizziness, Denies frequent falls, Denies numbness, Denies tingling and Denies weakness Endo Denies fatigue and Denies palpitations Physical Exam Vital Signs: Last Vital Signs Pulse 73 09/19/24 13:49 BP 130/70 09/19/24 13:49 BMI result Body Mass Index 43.0 Const General: comfortable and no acute distress Orientation/consciousness: patient oriented x3 HEENT Other: Unremarkable Head: Yes normal to inspection Neck Neck: Yes normal visual inspection Chest Chest palpation & inspection: normal inspection of the chest Resp Auscultation: clear to auscultation bilaterally Cardio Palpation: normal PMI Heart sounds: S1 normal heart sound present, S2 abnormal (soft), no gallops, Murmur heart sound present systolic III/ and at the right sternal border and no rubs GI Palpation (GI): Soft to palpation Back/Spine/Pelvis Other: unremarkable Skin General skin exam: no rashes or lesions noted Neuro General: patient oriented x3 Extrem General: Yes normal to inspection Psych Mental Status: mental status grossly normal Office Procedures EKG Details: EKG with underlying sinus rhythm at 73/Min; no significant ST-T changes and otherwise unremarkable[place] [id number], Complete Assessment & Plan Assessment & Plan (1) Non-rheumatic aortic stenosis: Code(s): I35.0 - Nonrheumatic aortic (valve) stenosis Category: Medical Plan: In the most recent echocardiogram, mean gradient across aortic valve was 46 mm Hg with calculated valve area of 0.9 sq cm. Could not exclude bicuspid aortic valve. Preserved LVEF at 60-65%. Findings discussed with patient. He needs a diagnostic catheterization followed by TAVR/cardiac surgery assessment. Because there is a concern for possible bicuspid valve, not clear if he is a TAVR candidate or not. (2) Atherosclerotic cardiovascular disease: Code(s): I25.10 - Atherosclerotic heart disease of [place] coronary artery without angina pectoris Category: Medical Plan: Coronary CTA in the past with mild to moderate coronary stenosis in different regions. Nothing clearly obstructive. Continue statins. Last LDL 48 mg/dL. Prior to aortic valve intervention, he requires a diagnostic catheterization. (3) Atrial arrhythmia: Code(s): I49.8 - Other specified cardiac arrhythmias Category: Medical Plan: In the EKG from primary care physician's office, sinus rhythm with PACs. Rare episodes of narrow complex tachycardia in the smart watch tracings, but very brief and only lasting seconds. Nothing in the last few months. In the 30 day monitor, underlying rhythm was sinus. No clear cut evidence of atrial fibrillation. There were PACs/PVCs and short atrial runs. Repeat Holter is again unremarkable. Continue beta-blockers. (4) Morbid obesity: Code(s): E66.01 - Morbid (severe) obesity due to excess calories Category: Medical Plan: Long-term issue and it has been this way. Orders: Orders Prothrombin Time INR Today I35.0 - Nonrheumatic aortic (valve) stenosis Cardiac Cath LT Diagnostic Today I35.0 - Nonrheumatic aortic (valve) stenosis Basic Metabolic Panel Today I35.0 - Nonrheumatic aortic (valve) stenosis Complete Blood Count no Diff Today I35.0 - Nonrheumatic aortic (valve) stenosis Coding Level of Care Code Est Pt Level 5 (61283) Complex EM visit Add On G2211 Diagnoses Non-rheumatic aortic stenosis I35.0 Atherosclerotic cardiovascular disease I25.10 Atrial arrhythmia I49.8 Morbid obesity E66.01 CPT Codes EKG - CPT: [id number], Complete ([id number])
[2024-09-19 13:49] VITALS: BP 130/70; PULSE 73; BMI 43.0
--- OUTSIDE RECORDS SUMMARY | 2024-09-19 16:29 | XMS_ITS | Encounter Summary ---
Author Organization [facility] Address [address] [place] [address] Care Team Providers Care Gang Ripsaw Operator Name Role Phone Skyler Graves Primary Care Provider [phone] Reason for Visit * Reason Onset Date Comments Medication Problem 08/09/2024 Encounter Details Date Type Department Care Team (Late st Contact Info) Description 08/09/2024 Telephone Adult Medicine [facility] [address], [place] [phone] Skyler Graves PA [address], [place] [id number] Medication Problem Social History Tobacco Use Types Packs/Day Years Used Date Smoking Tobacco: Light Smoker Smokeless Tobacco: Never Alcohol Use Standard Drinks/Week Comments No 0 (1 standard drink = 0.6 oz pur e alcohol) Sex and Gender Information Value Date Recorded Sex Assigned at Not on file Legal Sex Male 12:24 AM EST Gender Identity Not on file Sexual Orientation Not on file documented as of this encounter Progress Notes * Aj Abbott MA - 08/23/2024 8:58 AM EST Called and spoke to Prosper at the pharmacy. Pt would need to call his insurance to see what they can cover for continuous testing devices. Detailed message was left for the pt as well. * Sonal Kearney - 08/09/2024 3:13 PM EST Medication Problem: What is the name of the medication patient is having a problem with?: flash glucose scanning reader (FreeStyle Dianelys 2 [place]) misc 1 each, As needed flash glucose sensor (FreeStyle Dianelys 2 Sensor) kit What is the problem?: Pharmacy is calling stating Medicare Part B does not cover it. PT told Pharmacy that PCP office could get it override. Please advise Who is calling about the problem? : A pharmacist: [facility] Name: [facility] Is this a NEW medication?: no How long has the patient been taking this medication? Who prescribed this medication for the patient? Skyler Graves Who is patients PCP?: RENA Naylor Payor: MEDICARE / Plan: MEDICARE PART A & B / Product Type: Medicare / documented in this encounter Plan of Treatment Upcoming Encounters Date Type Department Care Team (Late st Contact Info) Description 11/27/2024 3:30 PM EDT Office Visit Adult Medicine [address] [address] Skyler Graves PA [address] [place] [id number] documented as of this encounter Visit Diagnoses Not on filedocumented in this encounter Additional Health Concerns Assessment Noted Time PHQ-9 Depression Total Score: 0 07/31/19 25 12:45 PM EST documented as of this encounter Care Teams Gang Ripsaw Operator Relationship Specialty Start Date End Date Skyler Graves PA PCP - General Internal Medicine 03/11/21 documented as of this encounter
--- OUTSIDE RECORDS SUMMARY | 2024-09-19 16:29 | XMS_ITS | Clinical Summary ---
Author Organization [address] Address [address] [place] [phone] Phone Care Team Providers Care Field Operations Farm Manager Name Role Phone Skyler Graves Primary Care Provider [phone] Allergies Active Allergy Reactions Criticality Noted Date Comments Sulindac Diarrhea 10/06/2010 Other Reaction(s): OTHER Abdominal Cramps Medications pregabalin (LYRICA) 150 mg capsule TAKE ONE CAPSULE BY MOUTH EVERY NIGHT. 4 Active atorvastatin (LIPITOR) 80 mg tablet Take 1 tablet (80 mg total) by mouth 1 (one) time each day. 4 Active lisinopriL (PRINIVIL,ZESTRIL ) 20 mg tablet Take 1 tablet (20 mg total) by mouth 1 (one) time each day. 4 Active metFORMIN (GLUCOPHAGE) 1,000 mg tablet Take 1 tablet (1,000 mg total) by mouth 2 (two) times a day with meals. 4 Active pioglitazone (ACTOS) 30 mg tablet Take 1 tablet (30 mg total) by mouth 1 (one) time each day. 4 Active metoprolol tartrate (LOPRESSOR) 50 mg tablet Take 1 tablet (50 mg total) by mouth 2 (two) times a day. 4 Active ciclopirox (PENLAC) 8 % solution Apply to affected nail daily, remove with alcohol wipe every 7 days 4 Active MAGNESIUM ORAL Take by mouth. Active blood sugar diagnostic (FreeStyle Lite Strips) test strip Use to check blood sugar 3 times daily as needed 3 Active naproxen (NAPROSYN) 500 mg tablet Take 1 Tablet by mouth 2 times daily as needed for Pain. 2 Active ibuprofen/diphenh ydramine cit (ADVIL PM ORAL) Take by mouth at bedtime as needed. Active mv-min/folic/K1/l ycopen/lutein (MEN 50 PLUS MULTIVITAMIN ORAL) Take by mouth 1 (one) time each day. Active blood glucose control high,low (FreeStyle Control) solution Use to calibrate glucometer as directed 7 Active blood-glucose meter (FREESTYLE LITE METER MISC) Inject 1 Lancet into the skin 3 (three) times a day. 7 Active FREESTYLE LANCETS MISC 1 Each by In Vitro route 3 times daily. 7 Active buffered aspirin (BUFFERIN) 325 mg tablet 1 tablet (325 mg total) 1 (one) time each day. Active glipiZIDE (GLUCOTROL) 5 mg tablet Take 2 tabs in the am, take 1 tab in the pm 270 tablet 3 5 Active flash glucose scanning reader (FreeStyle Dianelys 2 Turner) misc 1 each if needed (glucose monitoring). 1 each 5 Active flash glucose sensor (FreeStyle Dianelys 2 Sensor) kit 1 EA every 14 (fourteen) days. Box = Kit = EA 2 each 11 5 Active Active Problems Problem Noted Date Diagnosed Date Lung nodule 01/03/2023 Coronary artery disease due to lipid rich plaque 01/03/2023 Elevated PSA 08/17/2022 Frequent PVCs 08/05/2021 Left lumbar radiculopathy 03/10/2021 Overview (06/17/2024): Last Assessment & Plan: Patient is 3 weeks s/p left L3 foraminotomy for decompression, he states his left leg pain is much improved postop. He does note some mild left leg ache when walking distances, for example if he is grocery shopping for a long time. He denies fever, wound drainage, sweats chills, bowel bladder issues. Patient can follow-up as needed, he should note continued improvements. All postop questions answered, he plans to increase his activity and walk more as tolerated. He is aware that good control of his blood sugars and weight loss will help with nerve root healing and long-term health of his spine. 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 11/03/2006 Overview (06/17/2024): IMO update Morbid obesity 11/03/2006 Tobacco use disorder 11/03/2006 Encounters Date Type Department Care Team Description 08/09/2024 Telephone Adult Medicine [facility] [address] [place] [phone] Skyler Graves PA Medication Problem 08/07/2024 12:45 PM EST Office Visit Adult Medicine [facility] [address] [place] [phone] Skyler Graves, PA Uncontrolled type 2 diabetes mellitus with hyperglycemia (CMS/HCC) (Primary Dx); Acute pain of left shoulder; Morbid obesity (CMS/HCC); Tobacco use disorder; Primary hypertension; Elevated PSA; Coronary artery disease due to lipid rich plaque; Disorder of lipoid metabolism from Last 3 Months Immunizations Name Administration Dates Next Due Influenza Quadravalent, MDCK , 0.5ml, preservative free (Flucelvax) 6mo and older 04/04/2020,07/27/2018 Influenza Quadravalent, MDCK , 0.5ml, with preservative (Flucelvax) 6mo and older 05/06/2019 Influenza trivalent, 0.5mL ( Fluad) 65yo and older 04/11/2022 Influenza trivalent, 0.5mL, preservative free (Fluarix; FluLaval; Fluzone) ages 6mo and older (Afluria) 3 years and older 05/20/2016,05/22/2015,09/04/2013,04/16,04/11/2011 Influenza, Unspecified 05/24/2019 Pneumococcal conjugate 20 va lent (Prevnar 20, PCV 20) 2mo and older 02/20/2024 Pneumococcal polysaccharide 23 valent (Pneumovax 23) 2yo and older 04/11/2022,04/11/2011 Td Tetanus diptheria (Tdvax) 7yo and older 11/24/2021 Tdap Tetanus diptheria acell ular pertussis (Boostrix; Adacel) 7yo and older 12/09/2008 Surgical History Surgery Date Site/Laterality Comments COLONOSCOPY 12/05/2008 PROCEDURE: LA COLONOSCOPY FLX DX W/COLLJ SPEC WHEN PFRMD; COMMENT: Normal APPENDECTOMY PROCEDURE: HISTORICAL APPENDECTOMY; COMMENT: around the age of 6 LUMBAR LAMINECTOMY 09/03/2021 PROCEDURE: HISTORICAL LUMB LAMINECTOMY; COMMENT: Left L3 foraminotomy, Dr. Day Medical History Medical History Date Comments Tobacco use disorder 11/03/2006 DX:Tobacco use disorder Special screening for malign ant neoplasms, colon 12/05/2008 DX:Special screening for mal ignant neoplasms, colon; COMMENT: Negative colonoscopy 12/05/2008, no colon cancer screening needed for 10 years. Unspecified gingival and per iodontal disease 11/03/2006 DX:Unspecified gingival and periodontal disease Morbid obesity (CMS/HCC) 11/03/2006 DX:Morb id obesity (HCC) Type II or unspecified type diabetes mellitus without mention of complication, not stated as uncontrolled 11/23/2006 DX:Type II or unspecified ty pe diabetes mellitus without mention of complication, not stated as uncontrolled Nonspecific elevation of lev els of transaminase or lactic acid dehydrogenase (LDH) 01/05/2007 DX:Nonspecific elevation of levels of transaminase or lactic acid dehydrogenase (LDH) Unspecified disorder of lipo id metabolism 01/05/2007 DX:Unspecified disorder of l ipoid metabolism Sleep apnea 01/15/2013 DX:Sleep apnea HTN (hypertension) 11/21/2014 DX:HTN (hyper tension) Type II diabetes mellitus, uncontrolled 09/08/2016 DX:Type II diabetes mellitus , uncontrolled Family History Medical History Relation Name Comments Heart attack Brother 1 Younger than hi mself Diabetes Father Other: prostate cancer Father Lived to 95 Breast cancer Mother metastatic can cer Relation Name Status Comments Brother 1 Brother 2 Father Mother Social History Tobacco Use Types Packs/Day Years Used Date Smoking Tobacco: Light Smoker Smokeless Tobacco: Never Tobacco Cessation:Ready to Q uit: Not Asked; Counseling Given: Not Answered Alcohol Use Standard Drinks/Week Comments No 0 (1 standard drink = 0.6 oz pur e alcohol) Sex and Gender Information Value Date Recorded Sex Assigned at Not on file Legal Sex Male 12:24 AM EST Gender Identity Not on file Sexual Orientation Not on file Obstetrics History Last Filed Vital Signs Vital Sign Reading Time Taken Comments Blood Pressure 115/72 08/07/2024 12:48 PM EST Pulse 76 08/07/2024 12:48 PM EST Temperature 37.1 ??C (98.8 ??F) 08/07/2024 12:[address] Respiratory Rate 18 08/07/2024 12:48 PM EST Oxygen Saturation - - Inhaled Oxygen Concentration - - Weight 137 kg (301 lb 9.6 oz) 08/07/2024 12:48 P M EST Height 180.3 cm (5' 11 ) 08/07/2024 12:48 PM EST Body Mass Index 42.06 08/07/2024 12:48 PM EST Plan of Treatment Upcoming Encounters Date Type Department Care Team (Late st Contact Info) Description 11/27/2024 3:30 PM EDT Office Visit Adult Medicine [facility] [address] [place] [phone] Skyler Graves PA [address] [place] [address] Health Maintenance Due Date Last Done Comments Zoster Vaccines (1 of 2) 01/19/2006 RSV Immunization Patients 60+ Years Old (1 - Risk 60-74 years 1-dose series) 2016 Medicare Annual Wellness Visit 07/02/2022 Social Influencers of Health Screening 07/02/2022 COVID-19 Vaccine ( season) 2024 08/18/2021, 11/27/2020, 11/06/2020 Diabetes: Annual Retina Eye Exam 08/11/2024 08/11/2023 Diabetes: Blood Sugar Control Test (HGBA1C) 01/30/2025 08/02/2024, 02/16/2024, 02/16/2024 Diabetes: Annual Foot Exam 02/19/2025 02/20/2024 Depression Screening 07/31/2025 07/31/2024, 02/20/20 Diabetes: Annual Urine Albumin-Creatinine Ratio (uACR) 08/02/2025 08/02/2024, 02/16/2024 Diabetes: Annual GFR (Glomerular Filtration Rate) 08/02/2025 08/02/2024, 02/16/2024, 02/16/2024 Hypertension/CHF/CAD Annual BMP Blood Test 08/02/2025 08/02/2024, 02/16/2024, 02/16/2024 Falls Risk Assessment 08/07/2025 08/07/2024, 023 Colorectal Cancer Screening: FIT-DNA (Cologuard) 08/30/2026 08/30/2023 Cholesterol Screening (Lipid Panel) 08/02/2029 08/02/2024, 02/16/2024, 02/16/2024 DTaP,Tdap,and Td Vaccines (3 - Td or Tdap) 11/25/2031 11/24/2021, 12/09/2008 Hepatitis C Screening Completed 02/15/2015 Abdominal Aortic Aneurysm (AAA) Screen Completed 04/07/2021 Pneumococcal Vaccine: 50+ Years Completed 02/20/2024, 04/11/2022, 04/11/2011 Influenza Vaccine Completed 05/14/2024, , 04/11/2022, Additional history exists HIB Vaccines Aged Out No longer eligi ble based on patient's age to complete this topic HPV Vaccines Aged Out No longer eligi ble based on patient's age to complete this topic Hepatitis A Vaccines Aged Out No long er eligible based on patient's age to complete this topic Hepatitis B Vaccines Aged Out No long er eligible based on patient's age to complete this topic IPV Vaccines Aged Out No longer eligi ble based on patient's age to complete this topic MMR Vaccines Aged Out No longer eligi ble based on patient's age to complete this topic Meningococcal ACWY Vaccine Aged Out N o longer eligible based on patient's age to complete this topic Meningococcal B Vacine Aged Out No lo nger eligible based on patient's age to complete this topic RSV Immunization Patients Under 20 months Aged Out No longer eligible based on patient's age to complete this topic Varicella Vaccines Aged Out No longer eligible based on patient's age to complete this topic Procedures Procedure Name Priority Date/Time Associated Diagnosis Comments PSA TOTAL, FREE AND COMPLEXED, DIAGNOSTIC Routine 08/02/2024 3:13 PM EST Screening for depression Disorder of lipoprotein and lipid metabolism Morbid obesity (CMS/HCC) Type II or unspecified type diabetes mellitus with renal manifestations, uncontrolled(250.42 ) ([facility]) Tobacco use disorder Insomnia with sleep apnea PSA elevation MAGNESIUM Routine 08/02/2024 3:13 PM EST Screening for depression Disorder of lipoprotein and lipid metabolism Morbid obesity (CMS/HCC) Type II or unspecified type diabetes mellitus with renal manifestations, uncontrolled(250.42 ) ([facility]) Tobacco use disorder Insomnia with sleep apnea MICROALBUMIN CREATININE URINE RATIO Routine 08/02/2024 3:13 PM EST Screening for depression Disorder of lipoprotein and lipid metabolism Morbid obesity (CMS/HCC) Type II or unspecified type diabetes mellitus with renal manifestations, uncontrolled(250.42 ) ([facility]) Tobacco use disorder Insomnia with sleep apnea COMPREHENSIVE METABOLIC PANEL Routine 08/02/2024 3:13 PM EST Screening for depression Disorder of lipoprotein and lipid metabolism Morbid obesity (CMS/HCC) Type II or unspecified type diabetes mellitus with renal manifestations, uncontrolled(250.42 ) ([facility]) Tobacco use disorder Insomnia with sleep apnea LIPID PANEL WITH REFLEX TO DIRECT LDL Routine 08/02/2024 3:13 PM EST Screening for depression Disorder of lipoprotein and lipid metabolism Morbid obesity (CMS/HCC) Type II or unspecified type diabetes mellitus with renal manifestations, uncontrolled(250.42 ) (CMS/HCC) Tobacco use disorder Insomnia with sleep apnea HEMOGLOBIN A1C Routine 08/02/2024 3:13 PM EST Screening for depression Disorder of lipoprotein and lipid metabolism Morbid obesity (CMS/HCC) Type II or unspecified type diabetes mellitus with renal manifestations, uncontrolled(250.42 ) ([facility]/HCC) Tobacco use disorder Insomnia with sleep apnea DEPRESSION SCREENING Routine 02/20/2024 DIABETES FOOT EXAM Routine 02/20/2024 FIT-DNA Routine 08/30/2023 DIABETES EYE EXAM Routine 08/11/2023 FALLS RISK ASSESSMENT Routine 07/14/2023 ABDOMINAL AORTIC ANEURYSM SCRREN Routine 04/07/2021 HEPATITIS C SCREENING Routine 02/15/2015 from Last 3 Months or Most Recently Relevant to Health Maintenance Results * (ABNORMAL) PSA total, free and complexed (08/02/2024 3:13 PM EST) PSA 3.24 0.00 - 4.00 ng/mL LAB CHEMISTRY METHOD 08/03/2024 12:27 AM EST [facility] PSA, Complexed 2.85 0.00 - 3.00 ng/mL LAB CHEMISTRY METHOD 08/03/2024 12:27 AM EST [facility] PSA, Free 0.4 ng/mL LAB CHEMISTRY METHOD 08/03/2024 12:27 AM [facility] PSA, Free Pct 12.3(L) >25.0 % LAB CHEMISTRY METHOD 08/03/2024 12:27 AM [facility] Blood Venous blood specimen / Unknown Venipuncture / Unknown 08/02/2024 3:13 PM EST 08/02/2024 3:13 PM EST [facility] - 08/03/2024 12:27 AM EST Free PSA is a calculated value. ??The diagnostic usefulness of % free PSA has not been established in patients with Total PSA below 2.6 or above 10 ng/mL. ?? This test was performed using the Centaur Chemiluminescent method. ??PSA values obtained with other methods cannot be used interchangeably. Skyler CHASE LAB BLOOD ORDERABLES Cherry l Result [facility] [address] [place] [address], [place] [phone] * (ABNORMAL) Lipid panel with reflex to direct LDL (08/02/2024 3:13 PM EST) Cholesterol 122 0 - 200 mg/dL LAB CHEMISTRY METHOD 08/03/2024 12:29 AM EST [facility] Triglycerides 187(H) 0 - 150 mg/dL LAB CHEMISTRY METHOD 08/03/2024 12:29 AM [facility] HDL 38(L) >=40 mg/dL LAB CHEMISTRY METHOD 08/03/2024 12:29 AM [facility] LDL Calculated 47 0 - 100 mg/dL LAB CHEMISTRY METHOD 08/03/2024 12:29 AM [facility] VLDL Cholesterol Munir 37.4 mg/dL LAB CHEMISTRY METHOD 08/03/2024 12:29 AM [facility] Non HDL Chol. (LDL+VLDL) 84 <145 mg/dL LAB CHEMISTRY METHOD 08/03/2024 12:29 AM [facility] Chol/HDL Ratio 3.2 0.0 - 4.4 LAB CHEMISTRY METHOD 08/03/2024 12:29 AM [facility] Blood Venous blood specimen / Unknown Venipuncture / Unknown 08/02/2024 3:13 PM EST 08/02/2024 3:13 PM EST us Skyler CHASE LAB BLOOD ORDERABLES Chrery l Result [facility] [address] [place] [address], [place] [phone] * Microalbumin creatinine urine ratio (08/02/2024 3:13 PM EST) Creatinine, Urine 28.0 mg/dL LAB CHEMISTRY METHOD 08/03/2024 4:44 AM EST [facility] Microalb, Ur <5.0 0.0 - 29.0 mg/L LAB CHEMISTRY METHOD 08/03/2024 4:44 AM [facility] Microalb/Creat Ratio <18 <30 mg/g creat LAB CHEMISTRY METHOD 08/03/2024 4:44 AM [facility] Urine Urine specimen obtained by clean catch procedure / Unknown Non-blood Collection / Unknown 08/02/2024 3:13 PM EST 08/02/2024 3:13 PM EST Skyler CHASE LAB URINE ORDERABLES Cherry l Result Performing Organization Address City/[facility]/ZIP Co de Phone Number [facility] [address] [place] [address], [place] [phone] * Magnesium (08/02/2024 3:13 PM EST) Pathologist [facility] Magnesium 1.9 1.9 - 2.6 mg/dL LAB CHEMISTRY METHOD 08/03/2024 12:18 AM [facility] Blood Venous blood specimen / Unknown Venipuncture / Unknown 08/02/2024 3:13 PM EST 08/02/2024 3:13 PM EST Skyler CHASE LAB BLOOD ORDERABLES Cherry l Result [facility] [address] [place] [address], [place] [phone] * (ABNORMAL) Hemoglobin A1c (08/02/2024 3:13 PM EST) Pathologist [facility] Hemoglobin A1C 6.6(H) <6.5 % LAB CHEMISTRY METHOD 08/02/2024 11:35 PM [facility] Mean Bld Glu Estim. 143 mg/dL LAB CHEMISTRY METHOD 08/02/2024 11:35 PM [facility] Blood Venous blood specimen / Unknown Venipuncture / Unknown 08/02/2024 3:13 PM EST 08/02/2024 3:13 PM EST Skyler CHASE LAB BLOOD ORDERABLES Cherry l Result [facility] [address] [place] [address], * (ABNORMAL) Comprehensive metabolic panel (08/02/2024 3:13 PM EST) Sodium 138 133 - 145 mmol/L LAB CHEMISTRY METHOD 08/03/2024 12:29 AM [facility] Potassium 4.6 3.5 - 5.5 mmol/L LAB CHEMISTRY METHOD 08/03/2024 12:29 AM [facility] Chloride 105 96 - 110 mmol/L LAB CHEMISTRY METHOD 08/03/2024 12:29 AM [facility] CO2 28 21 - 32 mmol/L LAB CHEMISTRY METHOD 08/03/2024 12:29 AM [facility] Anion Gap 5 3 - 11 LAB CHEMISTRY METHOD 08/03/2024 12:29 AM [facility] Glucose 114(H) 70 - 100 mg/dL LAB CHEMISTRY METHOD 08/03/2024 12:29 AM [facility] BUN 24 5 - 25 mg/dL LAB CHEMISTRY METHOD 08/03/2024 12:29 AM [facility] Creatinine 1.37(H) 0.70 - 1.30 mg/dL LAB CHEMISTRY METHOD 08/03/2024 12:29 AM [facility] eGFR 56(L) >=60 mL/min/1. 73m2 LAB CHEMISTRY METHOD 08/03/2024 12:29 AM [facility] Comment:Calculation based on the??Chronic Kidney Disease Epidemiology Collaboration (CKD-EPI) equation refit??without adjustment for race. BUN/Creatinine Ratio 17.5 LAB CHEMISTRY METHOD 08/03/2024 12:29 AM [facility] Calcium 8.7 8.5 - 10.5 mg/dL LAB CHEMISTRY METHOD 08/03/2024 12:29 AM [facility] AST (SGOT) 15 10 - 42 unit/L LAB CHEMISTRY METHOD 08/03/2024 12:29 AM [facility] ALT (SGPT) 25 10 - 60 unit/L LAB CHEMISTRY METHOD 08/03/2024 12:29 AM [facility] Alkaline Phosphatase 145(H) 42 - 121 unit/L LAB CHEMISTRY METHOD 08/03/2024 12:29 AM [facility] Total Protein 7.2 6.0 - 8.0 g/dL LAB CHEMISTRY METHOD 08/03/2024 12:29 AM [facility] Albumin 4.1 3.2 - 5.0 g/dL LAB CHEMISTRY METHOD 08/03/2024 12:29 AM [facility] Total Bilirubin 0.4 0.0 - 1.4 mg/dL LAB CHEMISTRY METHOD 08/03/2024 12:29 AM [facility] Blood Venous blood specimen / Unknown Venipuncture / Unknown 08/02/2024 3:13 PM EST 08/02/2024 3:13 PM EST Skyler CHASE LAB BLOOD ORDERABLES Cherry l Result [facility] [address] [place] [address], * Depression Screening (02/20/2024) Pathologist [facility] Depression Screening Abstracted Historical Provider HEALTH MAINTENANCE Final Result * Diabetes Foot Exam (02/20/2024) Pathologist [facility] Diabetes: Annual Foot Exam Abstracted us Historical Provider HEALTH MAINTENANCE Final Result * FIT-DNA (Cologuard) (08/30/2023) [facility] Colorectal Cancer Screening: FIT-DNA (Cologuard) Normal, Abstracted [facility] Provider HEALTH MAINTENANCE Final Result * Diabetes Eye Exam (08/11/2023) [facility] Diabetes: Annual Retina Eye Exam Abstracted [facility] Provider HEALTH MAINTENANCE Final Result * Falls Risk Assessment (07/14/2023) [facility] Falls Risk Assessment Abstracted [facility] Provider HEALTH MAINTENANCE Final Result * Abdominal Aortic Aneurysm Screen (04/07/2021) [facility] Abdominal Aortic Aneurysm (AAA) Screening Abstracted Anatomical Region Laterality Modality Other [facility] Provider HEALTH MAINTENANCE Final Result * Hepatitis C Screening (02/15/2015) [facility] Hepatitis C Screening Abstracted [facility] Provider HEALTH MAINTENANCE Final Result from Last 3 Months or Most Recently Relevant to Health Maintenance Insurance [facility]ARE [facility] Care Teams Field Operations Farm Manager Relationship Specialty Start Date End Date Skyler Graves PA PCP - General Internal Medicine 03/11/21
== END 2024-09-19 14:30 | disposition home or self-care (01) ==
PROVIDERS: PCP Physician Assistant Medical; Visit Provider Internal Medicine
DX: I35.0 Nonrheumatic aortic (valve) stenosis (principal); I25.10 Atherosclerotic heart disease of native coronary artery without angina pectoris; E66.01 Morbid (severe) obesity due to excess calories; Z68.41 Body mass index [BMI] 40.0-44.9, adult; I49.8 Other specified cardiac arrhythmias
CPT/HCPCS: 93010; 99215; G2211

== ENCOUNTER → 2024-09-19 13:41 | Outpatient (BNVA) | payer MEDICARE, SELFPAY | PROVIDERS: PCP Physician Assistant Medical; Visit Provider Internal Medicine | DX: I35.0 Nonrheumatic aortic (valve) stenosis (principal); I25.10 Atherosclerotic heart disease of native coronary artery without angina pectoris; I49.8 Other specified cardiac arrhythmias; E66.01 Morbid (severe) obesity due to excess calories; Z68.41 Body mass index [BMI] 40.0-44.9, adult | CPT/HCPCS: 93005; 99212 ==

== ENCOUNTER 2024-10-08 14:32 | Outpatient (REF) | payer MEDICARE, SELFPAY ==
[2024-10-08 15:21] LABS: Hematocrit 44.7 % (42.0-52.0); Hemoglobin 15.1 g/dl (14.0-18.0); Mean Corpuscular HGB Conc 33.8 g/dl (31.0-36.0); Mean Corpuscular Hemoglobin 32.4 pg (27.0-33.0); Mean Corpuscular Volume 95.9 fL (80.0-98.0); Mean Platelet Volume 11.9 fL (9.4-12.4); Platelet Count 172 X10*3/uL (160-400); Red Blood Count 4.66 X10*6/uL (4.60-5.80); Red Cell Distribution Width 12.6 % (11.0-16.0)
[2024-10-08 15:26] LABS: Prothrombin Time 12.1 SEC (10.9-12.4)
[2024-10-08 17:10] LABS: Anion Gap 14 (12-20); Blood Urea Nitrogen 22 mg/dL (9-16); Calcium 9.5 mg/dL (8.4-10.2); Carbon Dioxide 26 mmol/L (22-29); Chloride 105 mmol/L (96-108); Estimated Glomerular Filt Rate > 60; Glucose Random 111 mg/dL (60-115); Sodium 140 mmol/L (135-145)
== END 2024-10-08 14:33 | disposition home or self-care (01) ==
LOC: HO.LAB 14:32
PROVIDERS: PCP Physician Assistant Medical; Visit Provider Internal Medicine
DX: I35.0 Nonrheumatic aortic (valve) stenosis (principal)
CPT/HCPCS: 36415; 80048; 85027; 85610

== ENCOUNTER → 2024-10-15 23:59 | Outpatient (BNV) | payer MEDICARE, SELFPAY | PROVIDERS: PCP Physician Assistant Medical; Visit Provider Internal Medicine Cardiovascular Disease | DX: I35.0 Nonrheumatic aortic (valve) stenosis (principal); R93.1 Abnormal findings on diagnostic imaging of heart and coronary circulation | CPT/HCPCS: 93458; 99152 ==

== ENCOUNTER 2024-10-28 10:50 | Outpatient (AMB) | payer MEDICARE, SELFPAY ==
--- NOTE | 2024-10-28 10:58 | A.OFFVIS_ITS ---
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 Accompanied by: Self / Same As Patient Allergies No Known Allergies Allergy (Verified 03/14/23 13:35) Medication List - Last Reconciled 10/28/24 by Ty Feng MD aspirin (Adult Low Dose Aspirin) 81 mg PO DAILY atorvastatin 80 mg PO DAILY blood sugar diagnostic (FreeStyle Lite Strips) As directed glipizide 5 mg PO BID ibuprofen-diphenhydramine cit 200-38 mg (Advil PM) 2 caps PO BEDTIME lisinopril 20 mg PO DAILY metformin 1,000 mg PO BID metoprolol tartrate 50 mg PO BID [id number] mcg (Centrum Minis Men 50 Plus) tabs PO DAILY pioglitazone 30 mg PO DAILY pregabalin 150 mg PO BID HPI Comments Details: 69-year-old gentleman who is here for assessment for transcatheter aortic valve replacement. He has background history of obesity, hypertension, tobacco abuse, low back pain and diabetes. He was experiencing shortness of breath with activities and underwent echocardiography which showed severe aortic valve stenosis. Aortic valve area by echocardiography was 0.9 centimeters sq with mean gradient of 46 and peak gradient of 71 mm Hg. The ascending aorta was mildly dilated at 3.7 cm. Subsequent to that he underwent cardiac catheterization which showed 40% PDA stenosis and moderate mid LAD stenosis. Mean gradient by cath was 42 mm Hg and peak to peak gradient was 53 mm Hg. He underwent TAVR protocol CT scan and also saw Cardiothoracic surgery. He was thought to be low risk and surgery was proposed the patient. He is here to discuss about management of aortic stenosis. He continues to have dyspnea with activities and has slowed down since the diagnosis of aortic stenosis. Denying any chest discomfort or episodes of dizziness/syncope. Continues to smoke cigars and is currently smoking 8 cigarettes per day. Previously was doing 20 cigars per day. His girlfriend had mitral valve surgery at age 40 and had a difficult postop period and he is very apprehensive about surgery and is more interested in transcatheter aortic valve replacement. 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 COUNT INCLUDES THE [facility] Medical History (Updated 03/14/23 @ 14:29 by Cosme Sanchez MD) Atherosclerotic cardiovascular disease Morbid obesity HUBERT (obstructive sleep apnea) Hyperlipidemia Essential hypertension Type 2 diabetes mellitus Surgical History History of back surgery Family History Mother Cancer Father Cancer Social History Alcohol intake: never Patient Tobacco Use Status: Current everyday Tobacco user Tobacco use type: Cigar Years Smoked: 20 +/- Review of Systems Const Denies chills, Denies fatigue, Denies fever(s), Denies frequent falls, Denies weakness, Denies weight gain and Denies weight loss ENT Denies dizziness Card Denies chest pain, Denies leg edema, Denies lightheadedness, Denies palpitatio ns, Denies dyspnea and Denies dyspnea on exertion Resp Denies cough, Denies dyspnea and Denies dyspnea on exertion GI Denies hematochezia Musc Denies abnormal gait, Denies muscle weakness, Denies numbness, Denies radiating pain into limb and Denies tingling Neuro Denies abnormal gait, Denies dizziness, Denies frequent falls, Denies numbness, Denies tingling and Denies weakness Endo Denies fatigue and Denies palpitations Physical Exam Vital Signs: Last Vital Signs Pulse 69 10/28/24 11:06 BP 140/72 H 10/28/24 11:06 BMI result Body Mass Index 41.4 GENERAL APPEARANCE: Morbidly obese. In no distress. NECK: no carotid bruit, no jugular venous distention. SKIN: no suspicious lesions, warm and dry. HEART: Ejection systolic murmur aortic area with no 2nd heart sound, regular rate and rhythm. LUNGS: Mild expiratory wheezes. ABDOMEN: soft, nontender. EXTREMITIES: no edema. PERIPHERAL PULSES: equal. NEUROLOGIC: No gross deficits, AAO X 3 Poor dentition. Dental caries. Office Procedures EKG Details: Sinus rhythm 69 beats per minute, normal axis, left ventricular hypertrophy, QTC 407 milliseconds. [id number], Complete Assessment & Plan Assessment & Plan (1) Non-rheumatic aortic stenosis: Code(s): I35.0 - Nonrheumatic aortic (valve) stenosis Category: Medical (2) Atherosclerotic cardiovascular disease: Code(s): I25.10 - Atherosclerotic heart disease of [place] coronary artery without angina pectoris Category: Medical (3) Morbid obesity: Code(s): E66.01 - Morbid (severe) obesity due to excess calories Category: Medical Plan 69-year-old gentleman with obesity, hypertension, tobacco abuse and diabetes who is here for discussion about management of severe aortic valve stenosis. By ECHO and cardiac catheterization he has severe . He has dyspnea on exertion. No chest discomfort syncope. We discussed in detail about management options. We discussed about surgical versus transcatheter aortic valve replacement. I have given him details about both options and about potential complication of transcatheter aortic valve placement including bleeding, vascular injury, infection, pacemaker placement and . After discussion and based on his on social circumstances he feels that he prefers to do transcatheter aortic valve replacement over surgical aortic valve replacement. I will review the CAT scan and we will have discussion in heart team. He has poor dentition and I have advised him to see a dentist. He is saying that he has Medicare which does not cover dental care. He is going to reach out to his primary to see if there is any way he can get [facility] [employer] or some other supplementary shortness to undergo dental assessment. Thank you for allowing me to participate in the care of your patient. Please feel free to contact me if you have any questions. Coding Level of Care Code New Pt Level 5 (02721) Complex EM visit Add On G2211 Diagnoses Non-rheumatic aortic stenosis I35.0 Atherosclerotic cardiovascular disease I25.10 Morbid obesity E66.01 CPT Codes EKG - CPT: 65902-[id number], Complete ([id number])
[2024-10-28 11:06] VITALS: BP 140/72; PULSE 69; BMI 41.4
--- OUTSIDE RECORDS SUMMARY | 2024-10-28 12:55 | XMS_ITS | Clinical Summary ---
Author Organization [address] Address [address] [place] [phone] Phone Care Team Providers Care Delivery Consultant Name Role Phone Skyler Graves Primary Care Provider [phone] Allergies Active Allergy Reactions Criticality Noted Date Comments Sulindac Diarrhea 10/06/2010 Other Reaction(s): OTHER Abdominal Cramps Medications pregabalin (LYRICA) 150 mg capsule TAKE ONE CAPSULE BY MOUTH EVERY NIGHT. 4 Active atorvastatin (LIPITOR) 80 mg tablet Take 1 tablet (80 mg total) by mouth 1 (one) time each day. 4 Active lisinopriL (PRINIVIL,ZESTRI L) 20 mg tablet Take 1 tablet (20 [...] daily as needed for Pain. 2 Active ibuprofen/diphen hydramine cit (ADVIL PM ORAL) Take by mouth at bedtime as needed. Active mv-min/folic/K1/ lycopen/lutein (MEN 50 PLUS MULTIVITAMIN ORAL) Take by [...] flash glucose scanning reader (FreeStyle Dianelys 2 [place]) misc 1 each if needed (glucose monitoring). 1 each 5 Active flash glucose sensor (FreeStyle Dianelys 2 Sensor) kit 1 EA every 14 (fourteen) days. Box = Kit = EA 2 each 11 5 Active amoxicillin-clav ulanate (AUGMENTIN) 875-125 mg per tablet Take 1 tablet by mouth 2 (two) times a day for 7 days. 14 each 5 10/15/19 25 Active Problems Problem Noted Date Diagnosed Date [...] Care Team Description 08/09/2024 Telephone Adult Medicine [address] [phone] Skyler Graves PA Medication Problem 08/07/2024 12:45 PM EST Office Visit Adult Medicine [address] [phone] Skyler Graves PA Uncontrolled type 2 diabetes mellitus with [...] Surgery Date Site/Laterality Comments COLONOSCOPY 12/05/2008 PROCEDURE: IA COLONOSCOPY FLX DX W/COLLJ SPEC WHEN PFRMD; [...] 3:30 PM EDT Office Visit Adult Medicine [facility] [address] [place] [phone] Skyler Graves PA [address] [place] [address] Health Maintenance Due Date Last Done Comments Zoster Vaccines (1 of 2) 01/19/2006 RSV Immunization Adult Patients (1 - Risk 60-74 years 1-dose series) [...] Procedure Name Priority Date/Time Associated Diagnosis Comments EXTERNAL CLINICAL LAB 10/08/2024 PSA TOTAL, FREE AND COMPLEXED, DIAGNOSTIC Routine 08/02/2024 3:13 PM EST Screening for depression Disorder of lipoprotein and lipid metabolism Morbid obesity ([facility]/HCC) Type II or unspecified type diabetes mellitus with renal manifestations, uncontrolled(250.42 ) ([facility]) Tobacco use disorder Insomnia with sleep apnea PSA elevation MAGNESIUM Routine 08/02/2024 3:13 PM EST Screening for depression Disorder of lipoprotein and lipid metabolism Morbid obesity ([facility]/HCC) Type II or unspecified type diabetes mellitus with renal manifestations, uncontrolled(250.42 ) ([facility]) Tobacco use disorder Insomnia with sleep apnea MICROALBUMIN CREATININE URINE RATIO Routine 08/02/2024 3:13 PM EST Screening for depression Disorder of lipoprotein and lipid metabolism Morbid obesity ([facility]/HCC) Type II or unspecified type diabetes mellitus with renal manifestations, uncontrolled(250.42 ) ([facility]) Tobacco use disorder Insomnia with sleep apnea COMPREHENSIVE METABOLIC PANEL Routine 08/02/2024 3:13 PM EST Screening for depression Disorder of lipoprotein and lipid metabolism Morbid obesity ([facility]/HCC) Type II or unspecified type diabetes mellitus with renal manifestations, uncontrolled(250.42 ) ([facility]) Tobacco use disorder Insomnia with sleep apnea LIPID PANEL WITH REFLEX TO DIRECT LDL Routine 08/02/2024 3:13 PM EST Screening for depression Disorder of lipoprotein and lipid metabolism Morbid obesity ([facility]/HCC) Type II or unspecified type diabetes mellitus with renal manifestations, uncontrolled(250.42 ) ([facility]) Tobacco use disorder Insomnia with sleep apnea HEMOGLOBIN A1C Routine 08/02/2024 3:13 PM EST Screening for depression Disorder of lipoprotein and lipid metabolism Morbid obesity ([facility]/HCC) Type II or unspecified type diabetes mellitus with renal manifestations, uncontrolled(250.42 ) ([facility]) Tobacco use disorder Insomnia with sleep apnea DEPRESSION SCREENING Routine 02/20/2024 DIABETES FOOT EXAM Routine 02/20/2024 FIT-DNA Routine 08/30/2023 DIABETES EYE EXAM Routine 08/11/2023 FALLS RISK ASSESSMENT Routine 07/14/2023 ABDOMINAL AORTIC ANEURYSM SCRREN Routine 04/07/2021 HEPATITIS C SCREENING Routine 02/15/2015 from Last 3 Months or Most Recently Relevant to Health Maintenance Results * External clinical lab (10/08/2024) Provider [facility] LAB BLOOD ORDERABLES Fin al Result * (ABNORMAL) PSA total, free and complexed (08/02/2024 3:13 PM EST) PSA 3.24 0.00 - 4.00 ng/mL LAB CHEMISTRY METHOD 08/03/2024 12:27 AM EST [facility] PSA, Complexed 2.85 0.00 - 3.00 ng/mL LAB CHEMISTRY METHOD 08/03/2024 12:27 AM EST [facility] PSA, Free 0.4 ng/mL LAB CHEMISTRY METHOD 08/03/2024 12:27 AM EST [facility] PSA, Free Pct 12.3(L) >25.0 % LAB CHEMISTRY METHOD 08/03/2024 12:27 AM [facility] Blood Venous blood specimen / Unknown Venipuncture / Unknown 08/02/2024 3:13 PM EST 08/02/2024 3:13 PM EST [facility] - 08/03/2024 12:27 AM EST Free PSA is a calculated value. ??The diagnostic usefulness of % free PSA has not been established in patients with Total PSA below 2.6 or above 10 ng/mL. ?? This test was performed using the Centaur Chemiluminescent method. ??PSA values obtained with other methods cannot be used interchangeably. Skyler CHASE LAB BLOOD ORDERABLES Cherry l Result Performing Organization Address [facility] Co de Phone Number [facility] [address] [place] [address], [place] [phone] * (ABNORMAL) Lipid panel with reflex to direct LDL (08/02/2024 3:13 PM EST) Cholesterol 122 0 - 200 mg/dL LAB CHEMISTRY METHOD 08/03/2024 12:29 AM [facility] Triglycerides 187(H) 0 - 150 mg/dL LAB CHEMISTRY METHOD 08/03/2024 12:29 AM [facility] HDL 38(L) >=40 mg/dL LAB CHEMISTRY METHOD 08/03/2024 12:29 AM [facility] LDL Calculated 47 0 - 100 mg/dL LAB CHEMISTRY METHOD 08/03/2024 12:29 AM [facility] VLDL Cholesterol Munir 37.4 mg/dL LAB CHEMISTRY METHOD 08/03/2024 12:29 AM [facility] Non HDL Chol. (LDL+VLDL) 84 <145 mg/dL LAB CHEMISTRY METHOD 08/03/2024 12:29 AM [facility] Chol/HDL Ratio 3.2 0.0 - 4.4 LAB CHEMISTRY METHOD 08/03/2024 12:29 AM [facility] Blood Venous blood specimen / Unknown Venipuncture / Unknown 08/02/2024 3:13 PM EST 08/02/2024 3:13 PM EST Skyler CHASE LAB BLOOD ORDERABLES Cherry l Result Performing Organization Address [facility]/ZIP Co de Phone Number [facility] [address] [place] [address], [place] [phone] * Microalbumin creatinine urine ratio (08/02/2024 3:13 PM EST) Creatinine, Urine 28.0 mg/dL LAB CHEMISTRY METHOD 08/03/2024 4:44 AM EST [facility] Microalb, Ur <5.0 0.0 - 29.0 mg/L LAB CHEMISTRY METHOD 08/03/2024 4:44 AM EST [facility] Microalb/Creat Ratio <18 <30 mg/g creat LAB CHEMISTRY METHOD 08/03/2024 4:44 AM [facility] Urine Urine specimen obtained by clean catch procedure / Unknown Non-blood Collection / Unknown 08/02/2024 3:13 PM EST 08/02/2024 3:13 PM EST Skyler CHASE LAB URINE ORDERABLES Cherry l Result Performing Organization Address [facility]/ZIP Co de Phone Number [facility] [address] [place] [address], [place] [phone] * Magnesium (08/02/2024 3:13 PM EST) Magnesium 1.9 1.9 - 2.6 mg/dL LAB CHEMISTRY METHOD 08/03/2024 12:18 AM EST [facility] Blood Venous blood specimen / Unknown Venipuncture / Unknown 08/02/2024 3:13 PM EST 08/02/2024 3:13 PM EST Skyler CHASE LAB BLOOD ORDERABLES Cherry l Result Performing Organization Address City/[facility]/ZIP Co de Phone Number [facility] [address] [place] [address], [place] [phone] * (ABNORMAL) Hemoglobin A1c (08/02/2024 3:13 PM EST) Pathologist [facility] Hemoglobin A1C 6.6(H) <6.5 % LAB CHEMISTRY METHOD 08/02/2024 11:35 PM EST [facility] Mean Bld Glu Estim. 143 mg/dL LAB CHEMISTRY METHOD 08/02/2024 11:35 PM [facility] Blood Venous blood specimen / Unknown Venipuncture / Unknown 08/02/2024 3:13 PM EST 08/02/2024 3:13 PM EST us Skyler CHASE LAB BLOOD ORDERABLES Cherry hawk Result [facility] [address] [place] [address], * (ABNORMAL) Comprehensive metabolic panel (08/02/2024 3:13 PM EST) [facility] Sodium 138 133 - 145 mmol/L LAB CHEMISTRY METHOD 08/03/2024 12:29 AM [facility] Potassium 4.6 3.5 - 5.5 mmol/L LAB CHEMISTRY METHOD 08/03/2024 12:29 AM [facility] Chloride 105 96 - 110 mmol/L LAB CHEMISTRY METHOD 08/03/2024 12:29 AM [facility] CO2 28 21 - 32 mmol/L LAB CHEMISTRY METHOD 08/03/2024 12:29 AM [facility] Anion Gap 5 3 - 11 LAB CHEMISTRY METHOD 08/03/2024 12:29 AM [facility] Glucose 114(H) 70 - 100 mg/dL LAB CHEMISTRY METHOD 08/03/2024 12:29 AM [facility] BUN 24 5 - 25 mg/dL LAB CHEMISTRY METHOD 08/03/2024 12:29 AM [facility] Creatinine 1.37(H) 0.70 - 1.30 mg/dL LAB CHEMISTRY METHOD 08/03/2024 12:29 AM [facility] eGFR 56(L) >=60 mL/min/1. 73m2 LAB CHEMISTRY METHOD 08/03/2024 12:29 AM [facility] Comment:Calculation based on the??Chronic Kidney Disease Epidemiology Collaboration (CKD-EPI) equation refit??without adjustment for race. BUN/Creatinine Ratio 17.5 LAB CHEMISTRY METHOD 08/03/2024 12:29 AM [facility] Calcium 8.7 8.5 - 10.5 mg/dL LAB CHEMISTRY METHOD 08/03/2024 12:29 AM [facility] AST (SGOT) 15 10 - 42 unit/L LAB CHEMISTRY METHOD 08/03/2024 12:29 AM [facility] ALT (SGPT) 25 10 - 60 unit/L LAB CHEMISTRY METHOD 08/03/2024 12:29 AM [facility] Alkaline Phosphatase 145(H) 42 - 121 unit/L LAB CHEMISTRY METHOD 08/03/2024 12:29 AM [facility] Total Protein 7.2 6.0 - 8.0 g/dL LAB CHEMISTRY METHOD 08/03/2024 12:29 AM [facility] Albumin 4.1 3.2 - 5.0 g/dL LAB CHEMISTRY METHOD 08/03/2024 12:29 AM [facility] Total Bilirubin 0.4 0.0 - 1.4 mg/dL LAB CHEMISTRY METHOD 08/03/2024 12:29 AM [facility] Blood Venous blood specimen / Unknown Venipuncture / Unknown 08/02/2024 3:13 PM EST 08/02/2024 3:13 PM EST us Skyler CHASE LAB BLOOD ORDERABLES Cherry l Result [facility] [address] [place] [address], * Depression Screening (02/20/2024) [facility] Depression Screening Abstracted [facility] Provider HEALTH MAINTENANCE Final Result * Diabetes Foot Exam (02/20/2024) [facility] Diabetes: Annual Foot Exam Abstracted Result [facility] Provider HEALTH MAINTENANCE Final Result * FIT-DNA (Cologuard) (08/30/2023) [facility] Colorectal Cancer Screening: FIT-DNA (Cologuard) Normal, Abstracted Result [facility] Provider HEALTH MAINTENANCE Final Result * Diabetes Eye Exam (08/11/2023) [facility] Diabetes: Annual Retina Eye Exam Abstracted Result [facility] Provider HEALTH MAINTENANCE Final Result * Falls Risk Assessment (07/14/2023) [facility] Falls Risk Assessment Abstracted Result [facility] Provider HEALTH MAINTENANCE Final Result * Abdominal Aortic Aneurysm Screen (04/07/2021) [facility] Abdominal Aortic Aneurysm (AAA) Screening Abstracted Anatomical Region Laterality Modality Other Result [facility] Provider HEALTH MAINTENANCE Final Result * Hepatitis C Screening (02/15/2015) [facility] Hepatitis C Screening Abstracted Result [facility] Provider HEALTH MAINTENANCE Final Result from Last 3 Months or Most Recently Relevant to Health Maintenance Insurance MEDICARE [employer] Care Teams Delivery Consultant Relationship Specialty Start Date End Date Skyler Graves PA PCP - General Internal Medicine 03/11/21
== END 2024-10-28 12:04 | disposition home or self-care (01) ==
LOC: HO.HCS 10:51
PROVIDERS: PCP Physician Assistant Medical; Visit Provider Internal Medicine Cardiovascular Disease
DX: I35.0 Nonrheumatic aortic (valve) stenosis (principal); I25.10 Atherosclerotic heart disease of native coronary artery without angina pectoris; E66.01 Morbid (severe) obesity due to excess calories; Z68.41 Body mass index [BMI] 40.0-44.9, adult; R94.31 Abnormal electrocardiogram [ECG] [EKG]
CPT/HCPCS: 93010; 99214; G2211

== ENCOUNTER → 2024-10-28 10:50 | Outpatient (BNVA) | payer MEDICARE, SELFPAY | PROVIDERS: PCP Physician Assistant Medical; Visit Provider Internal Medicine Cardiovascular Disease | DX: I10 Essential (primary) hypertension (principal); I35.0 Nonrheumatic aortic (valve) stenosis; I25.10 Atherosclerotic heart disease of native coronary artery without angina pectoris; E66.01 Morbid (severe) obesity due to excess calories; Z68.41 Body mass index [BMI] 40.0-44.9, adult; Z87.891 Personal history of nicotine dependence | CPT/HCPCS: 93005; 99212 ==

== ENCOUNTER 2024-12-04 10:09 | Outpatient (AMB) | payer MEDICARE, SELFPAY ==
--- NOTE | 2024-12-04 10:18 | A.OFFVIS_ITS ---
Vital Signs 12/04/24 10:21 Height 5 ft 11 in Weight 292 lb 12.382 oz BMI 40.8 BP 130/80 Blood Pressure Location Lt brachial Position Sitting Pulse 66 Pulse Source Pulse Oximeter Intake Visit Reasons: sooner appt. 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 Accompanied by: Self / Same As Patient Allergies No Known Allergies Allergy (Verified 03/14/23 13:35) Medication List - Last Reconciled 12/04/24 by Ty Feng MD aspirin (Adult Low Dose Aspirin) 81 mg PO DAILY atorvastatin 80 mg PO DAILY blood sugar diagnostic (FreeStyle Lite Strips) As directed glipizide 5 mg PO BID ibuprofen-diphenhydramine cit 200-38 mg (Advil PM) 2 caps PO BEDTIME lisinopril 20 mg PO DAILY metformin 1,000 mg PO BID metoprolol tartrate 50 mg PO BID [id number] mcg (Centrum Minis Men 50 Plus) tabs PO DAILY pioglitazone 30 mg PO DAILY pregabalin 150 mg PO BID HPI Comments Details: 69-year-old gentleman who is here for assessment for transcatheter aortic valve replacement. He has background history of obesity, hypertension, tobacco abuse, low back pain and diabetes. He was experiencing shortness of breath with activities and underwent echocardiography which showed severe aortic valve stenosis. Aortic valve area by echocardiography was 0.9 centimeters sq with mean gradient of 46 and peak gradient of 71 mm Hg. The ascending aorta was mildly dilated at 3.7 cm. Subsequent to that he underwent cardiac catheterization which showed 40% PDA stenosis and moderate mid LAD stenosis. Mean gradient by cath was 42 mm Hg and peak to peak gradient was 53 mm Hg. He underwent TAVR protocol CT scan and also saw Cardiothoracic surgery. He was thought to be low risk and surgery was proposed the patient. He is here to discuss about management of aortic stenosis. He continues to have dyspnea with activities and has slowed down since the diagnosis of aortic stenosis. Denying any chest discomfort or episodes of dizziness/syncope. Continues to smoke cigars and is currently smoking 8 cigarettes per day. Previously was doing 20 cigars per day. His girlfriend had mitral valve surgery at age 40 and had a difficult postop period and he is very apprehensive about surgery and is more interested in transcatheter aortic valve replacement. 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 12/04/2024: He is here for follow-up. We discussed him in heart team meeting and we have decided to proceed with transcatheter aortic valve replacement. He has poor dentition and does not have good insurance and it was difficult for him to find a dentist. He had 1 tooth removed recently and will have further dental workup on Monday. He is saying his breathing is worsening as he goes upstairs and is anxious to proceed with transcatheter aortic valve replacement. [facility] Medical History (Updated 03/14/23 @ 14:29 by Cosme Sanchez MD) Atherosclerotic cardiovascular disease Morbid obesity HUBERT (obstructive sleep apnea) Hyperlipidemia Essential hypertension Type 2 diabetes mellitus Surgical History History of back surgery Family History Mother Cancer Father Cancer Social History Alcohol intake: never Patient Tobacco Use Status: Current everyday Tobacco user Tobacco use type: Cigar Years Smoked: 20 +/- Review of Systems Const Denies chills, Denies fatigue, Denies fever(s), Denies frequent falls, Denies weakness, Denies weight gain and Denies weight loss ENT Denies dizziness Card Denies chest pain, Denies leg edema, Denies lightheadedness, Denies palpitations, Denies dyspnea and Denies dyspnea on exertion Resp Denies cough, Denies dyspnea and Denies dyspnea on exertion GI Denies hematochezia Musc Denies abnormal gait, Denies muscle weakness, Denies numbness, Denies radiating pain into limb and Denies tingling Neuro Denies abnormal gait, Denies dizziness, Denies frequent falls, Denies numbness, Denies tingling and Denies weakness Endo Denies fatigue and Denies palpitations Physical Exam Vital Signs: Last Vital Signs Pulse 66 12/04/24 10:21 BP 130/80 12/04/24 10:21 BMI result Body Mass Index 40.8 GENERAL APPEARANCE: Morbidly obese. In no distress. NECK: no carotid bruit, no jugular venous distention. SKIN: no suspicious lesions, warm and dry. HEART: Ejection systolic murmur aortic area with no 2nd heart sound, regular rate and rhythm. LUNGS: Mild expiratory wheezes. ABDOMEN: soft, nontender. EXTREMITIES: no edema. PERIPHERAL PULSES: equal. NEUROLOGIC: No gross deficits, AAO X 3 Poor dentition. Dental caries. Assessment & Plan Assessment & Plan (1) Morbid obesity: Code(s): E66.01 - Morbid (severe) obesity due to excess calories Category: Medical (2) Atherosclerotic cardiovascular disease: Code(s): I25.10 - Atherosclerotic heart disease of chilkoot coronary artery without angina pectoris Category: Medical (3) Non-rheumatic aortic stenosis: Code(s): I35.0 - Nonrheumatic aortic (valve) stenosis Category: Medical Plan Pleasant 69 year gentleman who is here for follow-up. He has severe symptomatic aortic valve stenosis. He also has LAD stenosis which is in 60-70% range and does not have any anginal symptoms. Has completed the workup and he has been planned to undergo transcatheter aortic valve replacement but has poor dentition. I have explained to him that dental caries/infection can increase the risk for endocarditis in the future. He is getting his teeth removed this Monday. He is anxious to proceed with the TAVR. He is saying he is getting more short of breath and before. Clinically does not appear to be in heart failure. I have advised him to stop smoking. As he gets his dental work done we will plan to schedule him in the coming weeks for transcatheter aortic valve replacement. Continue same medications otherwise. Blood pressure well controlled. Thank you for allowing me to participate in the care of your patient. Please feel free to contact me if you have any questions. Coding Level of Care Code Est Pt Level 4 (34640) Diagnoses Morbid obesity E66.01 Atherosclerotic cardiovascular disease I25.10 Non-rheumatic aortic stenosis I35.0
[2024-12-04 10:21] VITALS: BP 130/80; PULSE 66; BMI 40.8
--- OUTSIDE RECORDS SUMMARY | 2024-12-04 11:08 | XMS_ITS | Clinical Summary ---
Author Organization [address] Address [address] [place] [phone] Phone Care Team Providers Care Tare Weigher Name Role Phone Skyler Graves Primary Care Provider [phone] Allergies Active Allergy Reactions Criticality Noted Date Comments Sulindac Diarrhea 10/06/2010 Other Reaction(s): OTHER Abdominal Cramps Medications pregabalin (LYRICA) 150 mg capsule TAKE ONE CAPSULE BY MOUTH EVERY NIGHT. 01/04/20 24 Active atorvastatin (LIPITOR) 80 mg tablet Take 1 tablet (80 mg total) by mouth 1 (one) time each day. 02/20/20 24 Active lisinopriL (PRINIVIL,ZESTRI L) 20 mg tablet Take 1 tablet (20 mg total) by mouth 1 (one) time each day. 02/20/20 24 Active metFORMIN (GLUCOPHAGE) 1,000 mg tablet Take 1 tablet (1,000 mg total) by mouth 2 (two) times a day with meals. 02/20/20 24 Active metoprolol tartrate (LOPRESSOR) 50 mg tablet Take 1 tablet (50 mg total) by mouth 2 (two) times a day. 02/20/20 24 Active ciclopirox (PENLAC) 8 % solution Apply to affected nail daily, remove with alcohol wipe every 7 days 02/20/20 24 Active MAGNESIUM ORAL Take by mouth. Active naproxen (NAPROSYN) 500 mg tablet Take 1 Tablet by mouth 2 times daily as needed for Pain. 05/25/20 22 Active ibuprofen/diphen hydramine cit (ADVIL PM ORAL) Take by mouth at bedtime as needed. Active mv-min/folic/K1/ lycopen/lutein (MEN 50 PLUS MULTIVITAMIN ORAL) Take by mouth 1 (one) time each day. Active blood glucose control high,low (FreeStyle Control) solution Use to calibrate glucometer as directed 05/08/20 Active blood-glucose meter (FREESTYLE LITE METER MISC) Inject 1 Lancet into the skin 3 (three) times a day. 05/08/20 Active FREESTYLE LANCETS MISC 1 Each by In Vitro route 3 times daily. 05/08/20 Active buffered aspirin (BUFFERIN) 325 mg tablet 1 tablet (325 mg total) 1 (one) time each day. Active glipiZIDE (GLUCOTROL) 5 mg tablet Take 2 tabs in the am, take 1 tab in the pm 270 tablet 3 08/07/19 Active flash glucose scanning reader (FreeStyle Dianelys 2 [place]) misc 1 each if needed (glucose monitoring). 1 each 08/07/19 Active flash glucose sensor (FreeStyle Dianelys 2 Sensor) kit 1 EA every 14 (fourteen) days. Box = Kit = EA 2 each 08/07/19 Active blood sugar diagnostic (FreeStyle Lite Strips) test strip TEST THREE TIMES A DAY NEEDED 300 each 3 11/26/19 Active pioglitazone (ACTOS) 30 mg tablet Take 1 tablet (30 mg total) by mouth 1 (one) time each day. 02/20/20 24 025 Discontinued blood sugar diagnostic (FreeStyle Lite Strips) test strip Use to check blood sugar 3 times daily as needed 06/14/20 23 025 Discontinued Active Problems Problem Noted Date Diagnosed Date [...] long-term health of his spine. 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 Overview (06/17/2024): [facility] Morbid obesity ([facility] V24, [facility] V28) 2006 Tobacco use disorder 11/03/2006 Encounters Date Type Department Care Team Description 11/27/2024 3:30 PM EDT Office Visit Adult Medicine [address] [phone] Skyler Graves PA Primary hypertension (Primary Dx); Morbid obesity ([facility] V24, [facility] V28); Tobacco use disorder; Uncontrolled type 2 diabetes mellitus with hyperglycemia ([facility] V24, [facility] V28); Elevated PSA; Coronary artery disease due to lipid rich plaque; Severe aortic stenosis from Last 3 Months Immunizations Name Administration [...] Surgery Date Site/Laterality Comments COLONOSCOPY 12/05/2008 PROCEDURE: NC COLONOSCOPY FLX DX W/COLLJ SPEC WHEN PFRMD; [...] DX:Unspecified gingival and periodontal disease Morbid obesity (CMS/HCC V24, CMS/HCC V28) 11/03/2006 DX:Morbid obesity (HCC) Type II or unspecified type [...] drink = 0.6 oz pur e alcohol) Housing Instability Answer Date Recorde d Are you worried that in the next 2 months you may not have stable housing? No 11/26/2024 Food Access & Nutrition Answer Date Rec orded Do you have access to a vari ety of food including fruits and vegetables? Yes 11/26/2024 Access to Healthcare Answer Date Record ed Within the last 3 months, ho w many times did you visit the emergency department for your medical care? 0 11/26/2024 Health Literacy Answer Date Recorded How often do you need to hav e someone help you when you read instructions, pamphlets, or other written material from your doctor or pharmacy? Never 11/26/2024 Caregiver: How often do you need to have someone help you when you read instructions, pamphlets, or other written material from your doctor or pharmacy? Not on file 11/26/2024 Financial Risk Answer Date Recorded How hard is it for you to pa y for the very basics like food, housing, medical care, and air conditioning / heating? Somewhat hard 11/26/2024 Transportation Answer Date Recorded Has the lack of transportati on kept you from meetings, work, or from getting things needed for daily living? No Has the lack of transportati on kept you from medical appointments or from getting medications? No 11/26/2024 Social Isolation Answer Date Recorded How often do you feel lonely or isolated from th ose around you? Never 11/26/2024 Food Risk Answer Date Recorded Within the past 12 months we worried whether our food would run out before we got money to buy more. Sometimes true 025 Within the past 12 months th e food we bought just didn't last and we didn't have money to get more. Never true 11/26/2024 Dependent Care Answer Date Recorded Do you need help finding or paying for care for your loved ones. For example, child psychology teacher or elderly care for an older adult? No 11/26/2024 Education Answer Date Recorded Do you think completing more education or training, like finishing a GED, going to college, or learning a trade, would be helpful for you? No 11/26/2024 Employment and Income Answer Date Recor ded During the last four weeks, have you been actively looking for work? No 11/26/2024 Living Situation Answer Date Recorded What is your living situation? 0 11/26/2024 Sex and Gender Information Value Date Recorded Sex Assigned at Not on file Legal Sex Male 12:24 AM EST Gender Identity Not on file Sexual Orientation Not on file Obstetrics History Last Filed Vital Signs Vital Sign Reading Time Taken Comments Blood Pressure 127/72 11/27/2024 3:20 PM EDT Pulse 67 11/27/2024 3:20 PM EDT Temperature 36.6 ??C (97.9 ??F) 11/27/2024 3:20 PM ED T Respiratory Rate 20 11/27/2024 3:20 PM EDT Oxygen Saturation - - Inhaled Oxygen Concentration - - Weight 132 kg (291 lb 12.8 oz) 11/27/2024 3:20 P M EDT Height 180.3 cm (5' 11 ) 11/27/2024 3:20 PM EDT Body Mass Index 40.7 11/27/2024 3:20 PM EDT Plan of Treatment Upcoming Encounters Date Type Department Care Team (Late st Contact Info) Description 03/17/2025 1:00 PM EDT Office Visit Adult Medicine [facility] [address] [place] [phone] Skyler Graves PA [address] [place] [address] Health Maintenance Due Date Last Done Comments Zoster Vaccines (1 of 2) 01/19/2006 RSV Immunization Adult Patients (1 - Risk 60-74 years 1-dose series) 2016 Medicare Annual Wellness Visit 07/02/2022 COVID-19 Vaccine ( season) 2024 08/18/2021, 11/27/2020, 11/06/2020 Diabetes: Annual Retina Eye Exam 08/11/2024 08/11/2023 Diabetes: Annual Foot Exam 02/19/2025 02/20/2024 Diabetes: Blood Sugar Control Test (HGBA1C) 05/28/2025 11/25/2024, 08/02/2024, 02/16/2024, Additional history exists Depression Screening 07/31/2025 07/31/2024, 02/20/20 24 Falls Risk Assessment 08/07/2025 08/07/2024, 023 Diabetes: Annual Urine Albumin-Creatinine Ratio (uACR) 11/25/2025 11/25/2024, 08/02/2024, 02/16/2024 Diabetes: Annual GFR (Glomerular Filtration Rate) 11/25/2025 11/25/2024, 08/02/2024, 02/16/2024, Additional history exists Hypertension/CHF/CAD Annual BMP Blood Test 11/25/2025 11/25/2024, 08/02/2024, 02/16/2024, Additional history exists Social Influencers of Health Screening 11/26/2025 11/26/2024 Colorectal Cancer Screening: FIT-DNA (Cologuard) 08/30/2026 08/30/2023, 08/30/2023, 08/30/2023 Cholesterol Screening (Lipid Panel) 11/25/2029 11/25/2024, 08/02/2024, 02/16/2024, Additional history exists DTaP,Tdap,and Td Vaccines (3 - Td or [...] age to complete this topic Meningococcal B Vaccine Aged Out No l onger eligible based on patient's age to complete this topic RSV Immunization Patients Under 20 months Aged Out No longer eligible based on patient's age to complete this topic Varicella Vaccines Aged Out No longer eligible based on patient's age to complete this topic Procedures Procedure Name Priority Date/Time Associated Diagnosis Comments MAGNESIUM Routine 11/25/2024 1:29 PM EDT Acute pain of left shoulder Morbid obesity (CMS/HCC V24, CMS/HCC V28) Tobacco use disorder Primary hypertension Uncontrolled type 2 diabetes mellitus with hyperglycemia (CMS/HCC V24, CMS/HCC V28) Elevated PSA Coronary artery disease due to lipid rich plaque Disorder of lipoid metabolism LIPID PANEL WITH REFLEX TO DIRECT LDL Routine 11/25/2024 1:29 PM EDT Acute pain of left shoulder Morbid obesity (CMS/HCC V24, CMS/HCC V28) Tobacco use disorder Primary hypertension Uncontrolled type 2 diabetes mellitus with hyperglycemia (CMS/HCC V24, CMS/HCC V28) Elevated PSA Coronary artery disease due to lipid rich plaque Disorder of lipoid metabolism MICROALBUMIN CREATININE URINE RATIO Routine 11/25/2024 1:29 PM EDT Acute pain of left shoulder Morbid obesity (CMS/HCC V24, CMS/HCC V28) Tobacco use disorder Primary hypertension Uncontrolled type 2 diabetes mellitus with hyperglycemia (CMS/HCC V24, CMS/HCC V28) Elevated PSA Coronary artery disease due to lipid rich plaque Disorder of lipoid metabolism COMPREHENSIVE METABOLIC PANEL Routine 11/25/2024 1:29 PM EDT Acute pain of left shoulder Morbid obesity (CMS/HCC V24, CMS/HCC V28) Tobacco use disorder Primary hypertension Uncontrolled type 2 diabetes mellitus with hyperglycemia (CMS/HCC V24, CMS/HCC V28) Elevated PSA Coronary artery disease due to lipid rich plaque Disorder of lipoid metabolism HEMOGLOBIN A1C Routine 11/25/2024 1:29 PM EDT Acute pain of left shoulder Morbid obesity (CMS/HCC V24, CMS/HCC V28) Tobacco use disorder Primary hypertension Uncontrolled type 2 diabetes mellitus with hyperglycemia (CMS/HCC V24, CMS/HCC V28) Elevated PSA Coronary artery disease due to lipid rich plaque Disorder of lipoid metabolism PSA TOTAL, FREE AND COMPLEXED, DIAGNOSTIC Routine 11/25/2024 1:29 PM EDT Acute pain of left shoulder Morbid obesity (CMS/HCC V24, CMS/HCC V28) Tobacco use disorder Primary hypertension Uncontrolled type 2 diabetes mellitus with hyperglycemia (CMS/HCC V24, CMS/HCC V28) Elevated PSA Coronary artery disease due to lipid rich plaque Disorder of lipoid metabolism EXTERNAL CLINICAL LAB 10/08/2024 DEPRESSION SCREENING Routine 02/20/2024 DIABETES FOOT EXAM Routine 02/20/2024 FIT-DNA Routine 08/30/2023 DIABETES EYE EXAM Routine 08/11/2023 FALLS RISK ASSESSMENT Routine 07/14/2023 ABDOMINAL AORTIC ANEURYSM SCRREN Routine 04/07/2021 HEPATITIS C SCREENING Routine 02/15/2015 from Last 3 Months or Most Recently Relevant to Health Maintenance Results * (ABNORMAL) PSA total, free and complexed (11/25/2024 1:29 PM EDT) PSA 4.04(H) 0.00 - 4.00 ng/mL LAB CHEMISTRY METHOD 11/25/2024 5:37 PM EDT [facility] PSA, Complexed 3.45(H) 0.00 - 3.00 ng/mL LAB CHEMISTRY METHOD 11/25/2024 5:37 PM EDT [facility] PSA, Free 0.6 ng/mL LAB CHEMISTRY METHOD 11/25/2024 5:37 PM EDT [facility] PSA, Free Pct 14.9(L) >25.0 % LAB CHEMISTRY METHOD 11/25/2024 5:37 PM EDT [facility] Blood Venous blood specimen / Unknown Venipuncture / Unknown 11/25/2024 1:29 PM EDT 11/25/2024 1:29 PM EDT Narrative [facility] - 11/25/2024 5:37 PM EDT Free PSA is a calculated value. ??The diagnostic usefulness of % free PSA has not been established in patients with Total PSA below 2.6 or above 10 ng/mL. ?? This test was performed using the Centaur Chemiluminescent method. ??PSA values obtained with other methods cannot be used interchangeably. us Skyler CHASE LAB BLOOD ORDERABLES Cherry hawk Result [facility] [address] [place] [address], * (ABNORMAL) Lipid panel with reflex to direct LDL (11/25/2024 1:29 PM EDT) Cholesterol 106 0 - 200 mg/dL LAB CHEMISTRY METHOD 11/25/2024 4:58 PM EDT [facility] Triglycerides 243(H) 0 - 150 mg/dL LAB CHEMISTRY METHOD 11/25/2024 4:58 PM [facility] HDL 30(L) >=40 mg/dL LAB CHEMISTRY METHOD 11/25/2024 4:58 PM EDT [facility] LDL Calculated 27 0 - 100 mg/dL LAB CHEMISTRY METHOD 11/25/2024 4:58 PM EDT [facility] VLDL Cholesterol Munir 48.6 mg/dL LAB CHEMISTRY METHOD 11/25/2024 4:58 PM EDT [facility] Non HDL Chol. (LDL+VLDL) 76 <145 mg/dL LAB CHEMISTRY METHOD 11/25/2024 4:58 PM EDT [facility] Chol/HDL Ratio 3.5 0.0 - 4.4 LAB CHEMISTRY METHOD 11/25/2024 4:58 PM EDT [facility] Blood Venous blood specimen / Unknown Venipuncture / Unknown 11/25/2024 1:29 PM EDT 11/25/2024 1:29 PM EDT [facility] Natalee Graves [place] LAB BLOOD ORDERABLES Cherry l Result Performing Organization Address City/[facility]/ZIP Co de Phone Number [facility] [address] [place] [address], [place] [phone] * Microalbumin creatinine urine ratio (11/25/2024 1:29 PM EDT) Creatinine, Urine 61.0 mg/dL LAB CHEMISTRY METHOD 11/25/2024 5:42 PM EDT [facility] Microalb, Ur <5.0 0.0 - 29.0 mg/L LAB CHEMISTRY METHOD 11/25/2024 5:42 PM EDT [facility] Microalb/Creat Ratio <8 <30 mg/g creat LAB CHEMISTRY METHOD 11/25/2024 5:42 PM EDT [facility] Urine Urine specimen obtained by clean catch procedure / Unknown Non-blood Collection / Unknown 11/25/2024 1:29 PM EDT 11/25/2024 1:29 PM EDT [facility] Natalee Graves [place] LAB URINE ORDERABLES Cherry l Result Performing Organization Address City/[facility]/ZIP Co de Phone Number [facility] [address] [place] [address], [place] [phone] * Magnesium (11/25/2024 1:29 PM EDT) Magnesium 2.0 1.9 - 2.6 mg/dL LAB CHEMISTRY METHOD 11/25/2024 4:47 PM EDT [facility] Blood Venous blood specimen / Unknown Venipuncture / Unknown 11/25/2024 1:29 PM EDT 11/25/2024 1:29 PM EDT Skyler CHASE LAB BLOOD ORDERABLES Cherry l Result Performing Organization Address [facility]/ZIP Co de Phone Number [facility] [address] [place] [address], [place] [phone] * (ABNORMAL) Hemoglobin A1c (11/25/2024 1:29 PM EDT) Pathologist [facility] Hemoglobin A1C 6.7(H) <6.5 % LAB CHEMISTRY METHOD 11/25/2024 9:08 PM EDT [facility] Mean Bld Glu Estim. 146 mg/dL LAB CHEMISTRY METHOD 11/25/2024 9:08 PM EDT [facility] Blood Venous blood specimen / Unknown Venipuncture / Unknown 11/25/2024 1:29 PM EDT 11/25/2024 1:29 PM EDT Skyler CHASE LAB BLOOD ORDERABLES Cherry l Result Performing Organization Address [facility]/ZIP Co de Phone Number [facility] [address] [place] [address], [place] [phone] * (ABNORMAL) Comprehensive metabolic panel (11/25/2024 1:29 PM EDT) Pathologist [facility] Sodium 140 133 - 145 mmol/L LAB CHEMISTRY METHOD 11/25/2024 4:58 PM EDT [facility] Potassium 4.6 3.5 - 5.5 mmol/L LAB CHEMISTRY METHOD 11/25/2024 4:58 PM EDT [facility] Chloride 110 96 - 110 mmol/L LAB CHEMISTRY METHOD 11/25/2024 4:58 PM EDT [facility] CO2 23 21 - 32 mmol/L LAB CHEMISTRY METHOD 11/25/2024 4:58 PM [facility] Anion Gap 7 3 - 11 LAB CHEMISTRY METHOD 11/25/2024 4:58 PM [facility] Glucose 112(H) 70 - 100 mg/dL LAB CHEMISTRY METHOD 11/25/2024 4:58 PM [facility] BUN 27(H) 5 - 25 mg/dL LAB CHEMISTRY METHOD 11/25/2024 4:58 PM [facility] Creatinine 1.24 0.70 - 1.30 mg/dL LAB CHEMISTRY METHOD 11/25/2024 4:58 PM [facility] eGFR 63 >=60 mL/min/1. 73m2 LAB CHEMISTRY METHOD 11/25/2024 4:58 PM [facility] Comment:Calculation based on the??Chronic Kidney Disease Epidemiology Collaboration (CKD-EPI) equation refit??without adjustment for race. BUN/Creatinine Ratio 21.8 LAB CHEMISTRY METHOD 11/25/2024 4:58 PM [facility] Calcium 9.1 8.5 - 10.5 mg/dL LAB CHEMISTRY METHOD 11/25/2024 4:58 PM [facility] AST (SGOT) 20 10 - 42 unit/L LAB CHEMISTRY METHOD 11/25/2024 4:58 PM [facility] ALT (SGPT) 27 10 - 60 unit/L LAB CHEMISTRY METHOD 11/25/2024 4:58 PM [facility] Alkaline Phosphatase 192(H) 42 - 121 unit/L LAB CHEMISTRY METHOD 11/25/2024 4:58 PM [facility] Total Protein 7.1 6.0 - 8.0 g/dL LAB CHEMISTRY METHOD 11/25/2024 4:58 PM [facility] Albumin 3.8 3.2 - 5.0 g/dL LAB CHEMISTRY METHOD 11/25/2024 4:58 PM [facility] Total Bilirubin 0.3 0.0 - 1.4 mg/dL LAB CHEMISTRY METHOD 11/25/2024 4:58 PM EDT [facility] Blood Venous blood specimen / Unknown Venipuncture / Unknown 11/25/2024 1:29 PM EDT 11/25/2024 1:29 PM EDT Skyler CHASE LAB BLOOD ORDERABLES Cherry l Result [facility] [address] [place] [address], [place] [phone] * External clinical lab (10/08/2024) Result [facility]y Onbase LAB BLOOD ORDERABLES Fin al Result * Depression Screening (02/20/2024) [facility] Depression Screening Abstracted Result [facility] Provider HEALTH MAINTENANCE Final Result * Diabetes Foot Exam (02/20/2024) [facility] Diabetes: Annual Foot Exam Abstracted Result Critical access hospital HEALTH MAINTENANCE Final Result * FIT-DNA (Cologuard) (08/30/2023) [facility] Colorectal Cancer Screening: FIT-DNA (Cologuard) Normal, Abstracted Result Critical access hospital HEALTH MAINTENANCE Final Result * Diabetes Eye Exam (08/11/2023) [facility] Diabetes: Annual Retina Eye Exam Abstracted Result [facility] Provider HEALTH MAINTENANCE Final Result * Falls Risk Assessment (07/14/2023) [facility] Falls Risk Assessment Abstracted Result [facility] Provider HEALTH MAINTENANCE Final Result * Abdominal Aortic Aneurysm Screen (04/07/2021) [facility] Abdominal Aortic Aneurysm (AAA) Screening Abstracted Anatomical Region Laterality Modality Other Result [facility] Provider HEALTH MAINTENANCE Final Result * Hepatitis C Screening (02/15/2015) Hepatitis C Screening Abstracted Historical Provider HEALTH MAINTENANCE Final Result from Last 3 Months or Most Recently Relevant to Health Maintenance Insurance MEDICARE [facility] Care Teams Tare Weigher Relationship Specialty Start Date End Date Skyler Graves PA [address] [place] [address] PCP - General Internal Medicine 03/11/21
== END 2024-12-04 10:42 | disposition home or self-care (01) ==
LOC: HO.HCS 10:10
PROVIDERS: PCP Physician Assistant Medical; Visit Provider Internal Medicine Cardiovascular Disease
DX: E66.01 Morbid (severe) obesity due to excess calories (principal); I25.10 Atherosclerotic heart disease of native coronary artery without angina pectoris; I35.0 Nonrheumatic aortic (valve) stenosis
CPT/HCPCS: 99214

== ENCOUNTER → 2024-12-04 10:09 | Outpatient (BNVA) | payer MEDICARE, SELFPAY | PROVIDERS: PCP Physician Assistant Medical; Visit Provider Internal Medicine Cardiovascular Disease | DX: I10 Essential (primary) hypertension (principal); I25.10 Atherosclerotic heart disease of native coronary artery without angina pectoris; I35.0 Nonrheumatic aortic (valve) stenosis; E66.9 Obesity, unspecified; F17.290 Nicotine dependence, other tobacco product, uncomplicated; E66.01 Morbid (severe) obesity due to excess calories; Z68.41 Body mass index [BMI] 40.0-44.9, adult | CPT/HCPCS: 99212 ==

== ENCOUNTER 2024-12-20 16:59 | Emergency (ER) | payer MEDICARE, SELFPAY ==
--- NOTE | ~2024-12-20 | XR_ITS ---
CLINICAL HISTORY: chest pain 1 view chest x-ray Comparison: None Findings: There is no lung consolidation. Limited evaluation for pleural fluid. Borderline heart size. No acute fracture. IMPRESSION: 1. No acute findings. This document has been electronically signed by: Irene Sprague MD on 12/20/2024 18:25:32
--- NOTE | 2024-12-20 17:03 | ECG_ITS ---
Test Reason : RAPID HEART RATE Blood Pressure : */* mmHG Vent. Rate : 77 BPM Atrial Rate : 77 BPM P-R Int : 168 ms QRS Dur : 82 ms QT Int : 362 ms P-R-T Axes : 40 7 49 degrees QTcB Int : 409 ms Sinus rhythm with marked sinus arrhythmia Otherwise normal ECG No previous ECGs available Referred By: Tucker More Electronically Signed By: EDITH HERNANDEZ MD
[2024-12-20 17:14] VITALS: BP 127/67; PULSE 60; RESP 20; TEMP 36.6; O2SAT 96; BMI 40.1
--- NOTE | 2024-12-20 17:21 | ED.GENADULT ---
HPI - General Adult General Chief complaint: Arrhythmia/Palpitations Stated complaint: rapid heart rate; sent by technology development intern Time Seen by Provider: 12/20/24 18:19 Source: patient Mode of arrival: ambulatory Limitations: no limitations History of Present Illness ED Provider: faby conway np HPI narrative: patient is a 69-year-old male who presents emergency department for evaluation. He reports since approximately 00:00 overnight while he was sitting down watching TV he began feeling palpitations. He states that since then and throughout today he has been wearing his Apple smart watch, when he checks into the pulse variability for the day and provides arrange of 34-124 which prompted his concern. On my evaluation it does appear as though on a single occurrence the pulse has been as high as 124 otherwise variable from 40-50 up to 100. He also shows me irregular rhythms that he received notifications 4, it appears as though on 12/14/2024 the smart watch was detecting atrial fibrillation, on review of these 6 seconds strips, appears to rather be including PACs and PVCs rather than true atrial fibrillation. In addition to this, he does feel that over the past 2 days his shortness of breath has increased from his baseline, he admits that he is due to have any aortic valve replacement and does have chronic shortness of breath with this. He denies any dizziness, lightheadedness, headache, vision changes, neck pain, neck stiffness, chest pain, nausea, vomiting, abdominal pain, numbness or tingling of the extremities, recent lower extremity swelling, history of VTE/malignancy. Related Data Home Medications ?Medication ?Instructions ?Recorded ?Confirmed atorvastatin 80 mg tablet 80 mg PO DAILY 12/05/22 12/04/24 blood sugar diagnostic (FreeStyle #10 ea 12/05/22 12/04/24 Lite Strips) ibuprofen-diphenhydramine citrate 2 cap PO BEDTIME 12/05/22 12/04/24 200 mg-38 mg tablet (Advil PM) lisinopril 20 mg tablet 20 mg PO DAILY 12/05/22 12/04/24 metformin 1,000 mg tablet 1,000 mg PO BID 12/05/22 12/04/24 [id number] 150 mcg-vit K1 tab PO DAILY 12/05/22 12/04/24 30 mcg-lycop 300 mcg-lutein tablet (Centrum Minis Men 50 Plus) pioglitazone 30 mg tablet 30 mg PO DAILY 12/05/22 12/04/24 metoprolol tartrate 25 mg tablet 50 mg PO BID 09/20/23 12/04/24 pregabalin 150 mg capsule 150 mg PO BID 03/19/24 12/04/24 aspirin 81 mg tablet,delayed 81 mg PO DAILY 09/19/24 12/04/24 release (Adult Low Dose Aspirin) glipizide 10 mg tablet 5 mg PO BID 09/19/24 12/04/24 Allergies Allergy/AdvReac Type Severity Reaction Status Date / Time No Known Allergies Allergy Verified 12/20/24 17:17 Review of Systems Review of Systems: Yes all other systems are reviewed and are negative [facility] Past Medical History Attestation statement: The following information was validated with the patient. Source: old records reviewed Medical History Atherosclerotic cardiovascular disease Morbid obesity HUBERT (obstructive sleep apnea) Hyperlipidemia Essential hypertension Type 2 diabetes mellitus Surgical History History of back surgery Family History Family History Mother Cancer Father Cancer Social History Social History Alcohol intake: never Patient Tobacco Use Status: Current everyday Tobacco user Tobacco use type: Cigar Years Smoked: 20 +/- Smoked in Last 30 Days: Yes Use of substances other than those prescribed or required for medical reasons: No Advance Directives: No Advance Directives Information Provided: No Do you have a plan to hurt others: No Plan Physical Exam ED Vital Signs: Vital Signs - 24 hr 12/20/24 17:14 12/20/24 18:36 12/20/24 19:41 Temperature 97.9 F 97.7 F 98 F Pulse Rate 60 78 72 Respiratory Rate 20 19 17 Blood Pressure 127/67 129/49 L 122/49 L Pulse Oximetry 96 95 95 Oxygen Delivery Method Room Air Room Air Room Air BMI result Body Mass Index 40.1 Appearance: Alert.?Oriented to person, place and time. No acute distress.?Normal affect. Eyes: Pupils equal, round and reactive to light.? ENT: Pharynx normal.?? Neck: Normal inspection.? Neck supple.?? CVS: Heart sounds normal. pansystolic murmur At the right sternal border. Normal heart rate and rhythm.? Pulses normal.?? Respiratory: No respiratory distress.? Lung sounds clear to auscultation bilaterally?? Abdomen: Soft and non-tender. Normoactive bowel sounds. Skin: Skin warm and dry.? Normal skin color.? ?? Extremities: No lower extremity edema.? No calf ttp? Neuro: Moves all extremities spontaneously. Sensation intact bilaterally. CN II-XII intact. No focal neuro deficits. Ambulates with normal steady gait. Course Course Course Narrative: RME: 69-year-old male sent by technology development intern for chest pain. Patient states having some shortness of breath. Patient denies any leg swelling calf pain or pitting edema. Labs EKG chest x-ray ordered Reevaluation(s) Reevaluation #1: delta troponin is negative. Patient has been asymptomatic while in the emergency department. Pulse has remained in the 70s with sinus rhythm, no apparent arrhythmia. I did review this with Cardiology, Dr. Weaver, given he is asymptomatic no chest pain, do not see indication for admission at this time. He will follow up outpatient with cardiology for further evaluation prior to his upcoming TAVR. he was given strict return precautions. All questions were answered. He was ambulatory with a steady gait out of the emergency department. stable for discharge Medical Decision Making Medical Decision Making MDM Narrative: Patient is a 69-year-old male with past medical history ASCVD, aortic stenosis, LAD stenosis, obesity,, hyperlipidemia, hypertension, type 2 diabetes, as per HPI he was sent to emergency department per his technology development intern recommendation with varying pulse, palpitations, shortness of breath. he follows with [facility] [place] [place] Cardiology, last seen 12/04/2024 for clearance for transcatheter aortic valve replacement, due to dental caries has that time plan forupcoming appointment for extraction to prevent infection/risk of endocarditis and scheduling of TAVR. Although patient reports varying pulse of 30 4-124 per his smart watch, EKG on arrival to emergency department reveals a sinus rhythm with ventricular rate of 77, QTC 409, normal JUSTO, no ST elevation. He will be placed on cardiac telemetry in the emergency department to further evaluate for potential intermittent arrhythmia such as paroxysmal atrial fibrillation. CBC is without leukocytosis overt anemia, a mild thrombocytopenia of 157,000. No electrolyte derangement. No JESSE. LFTs overall unremarkable. High sensitive troponin within normal range at 4.1. BNP of 89. Chest x-ray without consolidation or infiltrate to suggest pneumonia, no apparent effusions. Differential Diagnosis Differential Diagnoses: The differential diagnosis associated with the presentation includes ( Arrhythmia, ACS, pleural effusion, pneumonia, aortic stenosis, viral syndrome, electrolyte derangement) Admission/Observation Consideration of admission/observation: Escalation of care including admission/observation considered Lab Data MDM Lab Attestation statement: I reviewed the patient's lab results. ( see narrative above) 12/20/24 17:35 12/20/24 17:34 Labs: Lab Results 12/20/24 12/20/24 12/20/24 Range/Units 17:34 17:35 19:41 WBC 7.8 (4.8-10.8) X10*3/uL RBC 4.49 L (4.60-5.80) X10*6/uL Hgb 14.4 (14.0-18.0) g/dl Hct 41.7 L (42.0-52.0) % MCV 92.9 (80.0-98.0) fL MCH 32.1 (27.0-33.0) pg MCHC 34.5 (31.0-36.0) g/dl RDW 12.6 (11.0-16.0) % Plt Count 157 L (160-400) X10*3/uL MPV 11.0 (9.4-12.4) fL Immature Gran % (Auto) 0.3 (0.0-0.4) % Neut % (Auto) 67.8 (45-73) % Lymph % (Auto) 22.8 (20-40) % Ward % (Auto) 5.9 (2-11) % Eos % (Auto) 2.8 (0-4) % Baso % (Auto) 0.4 (0-2) % Lymph # (Auto) 1.8 (1.2-4.9) X10*3/uL Ward # (Auto) 0.5 (0.1-1.2) X10*3/uL Eos # (Auto) 0.2 (0.0-0.4) X10*3/uL Baso # (Auto) 0.0 (0.0-0.2) X10*3/uL Abs Immat Gran (auto) 0.02 (0.00-0.03) X10*3/uL Absolute Neuts (auto) 5.3 (2.0-8.3) x10*3/uL Absolute Nucleated RBC 0.000 (0.0-0.012) X10*3/uL Nucleated RBC % (auto) 0.0 (0.0-0.2) /100WBC PT 11.3 (10.9-12.4) SEC INR 1.0 (0.9-1.1) APTT 32.3 (26.0-36.8) SEC Sodium 139 (135-145) mmol/L Potassium 4.8 (3.3-5.1) mmol/L Chloride 107 (96-108) mmol/L Carbon Dioxide 23 (22-29) mmol/L Anion Gap 14 (12-20) BUN 28 H (9-16) mg/dL Creatinine 1.17 (0.5-1.4) mg/dL Estim Creat Clear Calc 83.1 Estimated GFR > 60 Random Glucose 103 (60-115) mg/dL Calcium 9.5 (8.4-10.2) mg/dL Total Bilirubin 0.4 (0.0-1.0) mg/dL AST 24 (5-37) U/L ALT 20 (0-40) U/L Alkaline Phosphatase 165 H (39-117) U/L Troponin I High Sens 4.1 4.2 (<3.5-35.0) ng/L B-Natriuretic Peptide 89 (<100) pg/mL Total Protein 7.1 (6.5-8.0) g/dL Albumin 4.4 (3.5-5.0) g/dL Independent Interpretation I performed an independent interpretation of an: EKG ( See narrative above) and Plain X-Ray ( see narrative above) Radiology Impression Discussion of test interpretation with radiology: I have reviewed the radiologist's reading. Radiologist Impression: 1 view chest x-ray Comparison: None Findings: There is no lung consolidation. Limited evaluation for pleural fluid. Borderline heart size. No acute fracture. IMPRESSION: 1. No acute findings. External Record Review External record reviewed: Outpatient record ( see narrative above) Discharge Plan Discharge Clinical Impression: Heart palpitations Patient Disposition: Home, Self-Care Instructions: Heart Palpitations (ED) Additional Instructions: as discussed, first thing Monday morning please contact the cardiology office to arrange for an outpatient follow-up appointment. They may consider Holter monitoring if you are continuing to have these symptoms. You should return to emergency department with any new or worsening symptoms or concerns which include but is not limited to headache, dizziness, lightheadedness, chest pain, shortness of breath, persistent palpitations, nausea, vomiting, abdominal pain, numbness or tingling of the extremities, swelling of the legs. Prescriptions: No Action pregabalin 150 mg capsule 150 mg PO BID Rx Instructions: 2 tabs in am and 1 tab in pm (DME) FreeStyle Lite Strips Strip See Rx Instructions .ROUTE DAILY Qty: 10 Rx Instructions: As directed pioglitazone 30 mg tablet 30 mg PO DAILY metformin 1,000 mg tablet 1,000 mg PO BID lisinopril 20 mg tablet 20 mg PO DAILY atorvastatin 80 mg tablet 80 mg PO DAILY Advil PM 200-38 mg tablet 2 cap PO BEDTIME Centrum Minis Men 50 Plus [id number] mcg tablet PO DAILY metoprolol tartrate 25 mg tablet 50 mg PO BID glipizide 10 mg tablet 5 mg PO BID aspirin [Adult Low Dose Aspirin] 81 mg tablet,delayed release (DR/EC) 81 mg PO DAILY Referrals: [facility] [place] [place] [facility] [Provider Group] Skyler Graves PA [Primary Care Provider] - Interventions: ED Discharge Assessment Last Done: 12/20/24 21:56 Discharge Date/Time: 12/20/24 21:56 Print Language: Malagasy
[2024-12-20 17:39] LABS: MANUAL DIFF FLAG NO
[2024-12-20 17:40] LABS: Basophils Percent Auto 0.4 % (0-2); Eosinophils Absolute Auto 0.2 X10*3/uL (0.0-0.4); Eosinophils Percent Auto 2.8 % (0-4); Hematocrit 41.7 % (42.0-52.0); Hemoglobin 14.4 g/dl (14.0-18.0); Imm Gran Abs Auto 0.02 X10*3/uL (0.00-0.03); Imm Gran Pct Auto 0.3 % (0.0-0.4); Lymphocytes Absolute Auto 1.8 X10*3/uL (1.2-4.9); Lymphocytes Percent Auto 22.8 % (20-40); Mean Corpuscular HGB Conc 34.5 g/dl (31.0-36.0); Mean Corpuscular Hemoglobin 32.1 pg (27.0-33.0); Mean Corpuscular Volume 92.9 fL (80.0-98.0); Monocytes Absolute Auto 0.5 X10*3/uL (0.1-1.2); Monocytes Percent Auto 5.9 % (2-11); Neutrophils Absolute Auto 5.3 x10*3/uL (2.0-8.3); Neutrophils Percent Auto 67.8 % (45-73); Platelet Count 157 X10*3/uL (160-400); Red Blood Count 4.49 X10*6/uL (4.60-5.80); Red Cell Distribution Width 12.6 % (11.0-16.0); White Blood Count 7.8 X10*3/uL (4.8-10.8)
[2024-12-20 17:55] LABS: Prothrombin Time 11.3 SEC (10.9-12.4)
[2024-12-20 17:57] LABS: Partial Thromboplastin Time 32.3 SEC (26.0-36.8)
[2024-12-20 17:59] LABS: Alanine Aminotransferase 20 U/L (0-40); Albumin Level 4.4 g/dL (3.5-5.0); Alkaline Phosphatase 165 U/L (39-117); Anion Gap 14 (12-20); Aspartate Amino Transferase 24 U/L (5-37); Bilirubin Total 0.4 mg/dL (0.0-1.0); Blood Urea Nitrogen 28 mg/dL (9-16); Calcium 9.5 mg/dL (8.4-10.2); Carbon Dioxide 23 mmol/L (22-29); Chloride 107 mmol/L (96-108); Creatinine Clr Calc Pharmacy 83.1; Estimated Glomerular Filt Rate > 60; Glucose Random 103 mg/dL (60-115); Potassium 4.8 mmol/L (3.3-5.1); Sodium 139 mmol/L (135-145); Total Protein 7.1 g/dL (6.5-8.0)
[2024-12-20 18:05] LABS: B Type Natriuretic Peptide 89 pg/mL (<100)
[2024-12-20 18:08] LABS: Troponin-I High Sensitivity 4.1 ng/L (<3.5-35.0)
--- NOTE | 2024-12-20 18:35 | PC.NURSE ---
PAtient A&O x 4. Patient presents to ED c/o tachycardia and palpatations. Patient HR reached 124 according to watch. Denies pain. Denies SOB. Vss and up to date. Provider in to see patient. CXR unremarkable. EKG = sinus arrhythmia. Call ramírez in reach. Plan of care on going
[2024-12-20 18:36] VITALS: BP 129/49; PULSE 78; RESP 19; TEMP 36.5; O2SAT 95
--- OUTSIDE RECORDS SUMMARY | 2024-12-20 19:18 | XMS_ITS | Clinical Summary ---
Author Organization [address] Address [address] [place] [phone] Phone Care Team Providers Care Sand Mill Operator Name Role Phone Skyler Graves Primary Care Provider [phone] Allergies Active Allergy Reactions Criticality Noted Date [...] flash glucose scanning reader (FreeStyle Dianelys 2 [place]) misc 1 each if needed (glucose monitoring). [...] spine. 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 Overview (06/17/2024): [facility] [place] [place] update Morbid obesity ([facility] V24, [facility] V28) 2006 Tobacco use disorder 11/03/2006 Encounters Date Type Department Care Team Description 11/27/2024 3:30 PM EDT Office Visit Adult Medicine [address] [phone] Skyler Graves PA Primary hypertension (Primary Dx); Morbid obesity ([facility] V24, [facility] V28); Tobacco use disorder; Uncontrolled type 2 diabetes mellitus with hyperglycemia ([facility] V24, [facility] V28); Elevated PSA; Coronary artery disease due [...] Surgery Date Site/Laterality Comments COLONOSCOPY 12/05/2008 PROCEDURE: ND COLONOSCOPY FLX DX W/COLLJ SPEC WHEN PFRMD; [...] for your loved ones. For example, child welfare worker or elderly care for an older adult? [...] 1:00 PM EDT Office Visit Adult Medicine [facility] [address] [place] [address] Skyler Graves PA [address] [place] [address] Health Maintenance Due Date Last Done Comments [...] LAB CHEMISTRY METHOD 11/25/2024 5:37 PM EDT [facility] PSA, Complexed 3.45(H) 0.00 - 3.00 ng/mL LAB CHEMISTRY METHOD 11/25/2024 5:37 PM EDT [facility] PSA, Free 0.6 ng/mL LAB CHEMISTRY METHOD 11/25/2024 5:37 PM EDT [facility] PSA, Free Pct 14.9(L) >25.0 % LAB CHEMISTRY METHOD 11/25/2024 5:37 PM EDT [facility] Blood Venous blood specimen / Unknown Venipuncture / Unknown 11/25/2024 1:29 PM EDT 11/25/2024 1:29 PM EDT Narrative [facility] - 11/25/2024 5:37 PM [...] CHASE LAB BLOOD ORDERABLES Cherry hawk Result [facility] [address] [place] [address], * (ABNORMAL) Lipid panel with reflex to direct LDL (11/25/2024 1:29 PM EDT) Cholesterol 106 0 - 200 mg/dL LAB CHEMISTRY METHOD 11/25/2024 4:58 PM EDT [facility] Triglycerides 243(H) 0 - 150 mg/dL LAB CHEMISTRY METHOD 11/25/2024 4:58 PM [facility] HDL 30(L) >=40 mg/dL LAB CHEMISTRY METHOD 11/25/2024 4:58 PM EDT [facility] LDL Calculated 27 0 - 100 mg/dL LAB CHEMISTRY METHOD 11/25/2024 4:58 PM EDT [facility] VLDL Cholesterol Munir 48.6 mg/dL LAB CHEMISTRY METHOD 11/25/2024 4:58 PM EDT [facility] Non HDL Chol. (LDL+VLDL) 76 <145 mg/dL LAB CHEMISTRY METHOD 11/25/2024 4:58 PM EDT [facility] Chol/HDL Ratio 3.5 0.0 - 4.4 LAB CHEMISTRY METHOD 11/25/2024 4:58 PM EDT [facility] Blood Venous blood specimen / Unknown Venipuncture / Unknown 11/25/2024 1:29 PM EDT 11/25/2024 1:29 PM EDT [facility] Natalee Graves ND LAB BLOOD ORDERABLES Cherry l Result Performing Organization Address City/[facility]/ZIP Co de Phone Number [facility] [address] [place] [address], [place] [phone] * Microalbumin creatinine urine ratio (11/25/2024 1:29 PM EDT) Creatinine, Urine 61.0 mg/dL LAB CHEMISTRY METHOD 11/25/2024 5:42 PM EDT [facility] Microalb, Ur <5.0 0.0 - 29.0 mg/L LAB CHEMISTRY METHOD 11/25/2024 5:42 PM EDT [facility] Microalb/Creat Ratio <8 <30 mg/g creat LAB CHEMISTRY METHOD 11/25/2024 5:42 PM EDT [facility] Urine Urine specimen obtained by clean catch procedure / Unknown Non-blood Collection / Unknown 11/25/2024 1:29 PM EDT 11/25/2024 1:29 PM EDT [facility] Natalee Graves ND LAB URINE ORDERABLES Cherry l Result Performing Organization Address City/[facility]/ZIP Co de Phone Number [facility] [address] [place] [address], [place] [phone] * Magnesium (11/25/2024 1:29 PM EDT) Magnesium 2.0 1.9 - 2.6 mg/dL LAB CHEMISTRY METHOD 11/25/2024 4:47 PM EDT [facility] Blood Venous blood specimen / Unknown Venipuncture / Unknown 11/25/2024 1:29 PM EDT 11/25/2024 1:29 PM EDT Skyler CHASE LAB BLOOD ORDERABLES Cherry l Result Performing Organization Address [facility]/ZIP Co de Phone Number [facility] [address] [place] [address], [place] [phone] * (ABNORMAL) Hemoglobin A1c (11/25/2024 1:29 PM EDT) Pathologist [facility] Hemoglobin A1C 6.7(H) <6.5 % LAB CHEMISTRY METHOD 11/25/2024 9:08 PM EDT [facility] Mean Bld Glu Estim. 146 mg/dL LAB CHEMISTRY METHOD 11/25/2024 9:08 PM EDT [facility] Blood Venous blood specimen / Unknown Venipuncture / Unknown 11/25/2024 1:29 PM EDT 11/25/2024 1:29 PM EDT Skyler CHASE LAB BLOOD ORDERABLES Cherry l Result Performing Organization Address [facility]/ZIP Co de Phone Number [facility] [address] [place] [address], [place] [phone] * (ABNORMAL) Comprehensive metabolic panel (11/25/2024 1:29 PM EDT) Pathologist [facility] Sodium 140 133 - 145 mmol/L LAB CHEMISTRY METHOD 11/25/2024 4:58 PM EDT [facility] Potassium 4.6 3.5 - 5.5 mmol/L LAB CHEMISTRY METHOD 11/25/2024 4:58 PM EDT [facility] Chloride 110 96 - 110 mmol/L LAB CHEMISTRY METHOD 11/25/2024 4:58 PM EDT [facility] CO2 23 21 - 32 mmol/L LAB CHEMISTRY METHOD 11/25/2024 4:58 PM [facility] Anion Gap 7 3 - 11 LAB CHEMISTRY METHOD 11/25/2024 4:58 PM [facility] Glucose 112(H) 70 - 100 mg/dL LAB CHEMISTRY METHOD 11/25/2024 4:58 PM [facility] BUN 27(H) 5 - 25 mg/dL LAB CHEMISTRY METHOD 11/25/2024 4:58 PM [facility] Creatinine 1.24 0.70 - 1.30 mg/dL LAB CHEMISTRY METHOD 11/25/2024 4:58 PM [facility] eGFR 63 >=60 mL/min/1. 73m2 LAB CHEMISTRY METHOD 11/25/2024 4:58 PM [facility] Comment:Calculation based on the??Chronic Kidney Disease Epidemiology Collaboration (CKD-EPI) equation refit??without adjustment for race. BUN/Creatinine Ratio 21.8 LAB CHEMISTRY METHOD 11/25/2024 4:58 PM [facility] Calcium 9.1 8.5 - 10.5 mg/dL LAB CHEMISTRY METHOD 11/25/2024 4:58 PM [facility] AST (SGOT) 20 10 - 42 unit/L LAB CHEMISTRY METHOD 11/25/2024 4:58 PM [facility] ALT (SGPT) 27 10 - 60 unit/L LAB CHEMISTRY METHOD 11/25/2024 4:58 PM [facility] Alkaline Phosphatase 192(H) 42 - 121 unit/L LAB CHEMISTRY METHOD 11/25/2024 4:58 PM [facility] Total Protein 7.1 6.0 - 8.0 g/dL LAB CHEMISTRY METHOD 11/25/2024 4:58 PM [facility] Albumin 3.8 3.2 - 5.0 g/dL LAB CHEMISTRY METHOD 11/25/2024 4:58 PM [facility] Total Bilirubin 0.3 0.0 - 1.4 mg/dL LAB CHEMISTRY METHOD 11/25/2024 4:58 PM EDT [facility] Blood Venous blood specimen / Unknown Venipuncture / Unknown 11/25/2024 1:29 PM EDT 11/25/2024 1:29 PM EDT Skyler CHASE LAB BLOOD ORDERABLES Cherry l Result [facility] [address] [place] [address], [place] [phone] * External clinical lab (10/08/2024) Result [facility] LAB BLOOD ORDERABLES Fin al Result * Depression Screening (02/20/2024) [facility] Depression Screening Abstracted Result [facility] Provider HEALTH MAINTENANCE Final Result * Diabetes Foot Exam (02/20/2024) [facility] Diabetes: Annual Foot Exam Abstracted Result [facility] HEALTH MAINTENANCE Final Result * FIT-DNA (Cologuard) (08/30/2023) [facility] Colorectal Cancer Screening: FIT-DNA (Cologuard) Normal, Abstracted Result [facility] HEALTH MAINTENANCE Final Result * Diabetes Eye Exam (08/11/2023) [facility] Diabetes: Annual Retina Eye Exam Abstracted Result [facility] Provider HEALTH MAINTENANCE Final Result * Falls Risk Assessment (07/14/2023) [facility] Falls Risk Assessment Abstracted Result [facility] Provider HEALTH MAINTENANCE Final Result * Abdominal Aortic Aneurysm Screen (04/07/2021) [facility] Abdominal Aortic Aneurysm (AAA) Screening Abstracted Anatomical Region Laterality Modality Other Result [facility] Provider HEALTH MAINTENANCE Final Result * Hepatitis C Screening (02/15/2015) Hepatitis C Screening Abstracted Historical Provider HEALTH MAINTENANCE Final Result from Last 3 Months or Most Recently Relevant to Health Maintenance Insurance MEDICARE [facility] Care Teams Sand Mill Operator Relationship Specialty Start Date End Date Skyler Graves PA [address] [place] [address] PCP - General Internal Medicine 03/11/21
[2024-12-20 19:41] VITALS: BP 122/49; PULSE 72; RESP 17; TEMP 36.6; O2SAT 95
[2024-12-20 20:15] LABS: Troponin-I High Sensitivity 4.2 ng/L (<3.5-35.0)
[2024-12-20 21:42] VITALS: BP 124/69; PULSE 84; RESP 20; TEMP 36.7; O2SAT 93
[2024-12-20 21:56] VITALS: BP 124/69; PULSE 84; RESP 20; TEMP 36.7; O2SAT 93
== END 2024-12-20 21:56 | disposition home or self-care (01) ==
PROVIDERS: Nurse Practitioner Family; Physician Assistant; Emergency Provider Emergency Medicine; PCP Physician Assistant Medical
DX: R00.2 Palpitations (principal); I10 Essential (primary) hypertension; E78.5 Hyperlipidemia, unspecified; E11.9 Type 2 diabetes mellitus without complications; I25.10 Atherosclerotic heart disease of native coronary artery without angina pectoris; Z79.899 Other long term (current) drug therapy
CPT/HCPCS: 36415; 71045; 80053; 83880; 84484; 85025; 85610; 85730; 93005; 99283; 99284

== ENCOUNTER → 2024-12-20 17:03 | Outpatient (BNV) | payer MEDICARE, SELFPAY | PROVIDERS: Emergency Provider Emergency Medicine; PCP Physician Assistant Medical; Visit Provider Internal Medicine Cardiovascular Disease | DX: I49.9 Cardiac arrhythmia, unspecified (principal) | CPT/HCPCS: 93010 ==

== ENCOUNTER → 2024-12-20 17:20 | Outpatient (BNV) | payer MEDICARE, SELFPAY | PROVIDERS: Emergency Provider Emergency Medicine; Visit Provider Radiology Diagnostic Radiology | DX: R07.9 Chest pain, unspecified (principal) | CPT/HCPCS: 71045 ==

== ENCOUNTER → 2025-01-07 23:59 | Outpatient (BNV) | payer MEDICARE, SELFPAY | PROVIDERS: PCP Physician Assistant Medical; Visit Provider Internal Medicine Cardiovascular Disease | DX: I35.0 Nonrheumatic aortic (valve) stenosis (principal); Z00.6 Encounter for examination for normal comparison and control in clinical research program | CPT/HCPCS: 33361; 99152 ==

== ENCOUNTER → 2025-02-06 13:50 | Outpatient (REF) | payer MEDICARE, SELFPAY ==
--- NOTE | 2025-02-06 13:54 | CA_ITS ---
Transthoracic Echocardiogram Patient (Last, First, Middle): Rm Corona, Gender: Male Date of : 1955 Age: 70 Procedure Date: 02/06/2025 Procedure Type: Transthoracic Echocardiogram Location: OP Height: 180.34 cm Weight: 132.45 kg BSA: 2.48 m2 Heart Rate: bpm BP: 124 / 69 mmHg Facility Coordinator: IMELDA/NASRA Referring MD: Ty Feng MD Symptoms: Z95.2 - Presence of prosthetic heart valve Study Quality: Fair, contrast ECG Rhythm: Sinus Conclusions: - The left ventricular systolic function is normal. The visually estimated ejection fraction is between 55-60%. - A bioprosthetic aortic valve is present. The prosthetic aortic valve appears to be functioning normally. Findings Procedure Information Contrast agent, definity, is being given per protocol without apparent complications. Left Ventricle Normal left ventricular cavity size. There is mildly increased left ventricular wall thickness. The left ventricular systolic function is normal. The visually estimated ejection fraction is between 55-60%. There is no evidence of regional wall motion abnormalities. Evidence suggests grade I (mild) diastolic dysfunction. Right Ventricle Normal right ventricular cavity size and systolic function. Atria The left atrium is mildly dilated. The right atrium is normal in size. Aortic Valve A bioprosthetic aortic valve is present. The prosthetic aortic valve appears to be functioning normally. The mean gradient is 15 mmHg. There is no aortic valve regurgitation. Mitral Valve The mitral valve appears normal. There is trace mitral valve regurgitation. There is no mitral valve stenosis. Pulmonic Valve The pulmonic valve is likely normal. Tricuspid Valve There is mild tricuspid valve regurgitation. There is no evidence of pulmonary hypertension. Great Vessels The asc aorta is normal in size. Venous The inferior vena cava is mildly dilated and collapses greater than 50% with inspiration. Pericardium/Pleural There is no evidence of pericardial effusion. Prior Study Comparison Changes noted compared to prior study dated: 09/03/2024. s/p TAVR. Measurements 2D Linear Measurements IVSd: 1.28 0.6-0.9/0.6-1.0 cm LVIDd: 5.63 3.9-5.3/4.2-5.9 cm LVIDd Index: 2.27 2.4-3.2/2.2-3.1 cm/m2 LVIDs: 4.04 2.0-3.6 cm LVPWd: 1.12 0.7-1.1 cm LA Diam: 5.20 2.7-3.8/3.0-4.0 cm LAIDs Index: 2.10 1.5-2.3 cm/m2 LV Mass: 352.90 67-162/88-224 g LV Mass Index: 142.30 43-95/49-115 g/m2 LVOT Diam: 2.40 3.0+(-)1.3 cm 2D Systolic Function EF 4C: 65.30 >55% EF 2C: 60.70 >55% EF BiP: 63.40 >55% Mitral Valve MV Pk E: 1.04 MV PK A: 1.28 MV Decel Time: 232.00 E/A: 0.80 E'Lateral: 5.55 E'Medial: 4.79 E/E' Med: 21.70 E/E' Lat: 18.70 PHT: 68.00 MVA PHT: 3.24 Decel [place]: 4.50 Aortic Valve AoV Pk Terrence: 2.60 AoV Mn Terrence: 1.82 AoV VTI: 0.67 AoV Pk Grad: 27.00 Aov Mn Grad: 15.00 JUAN A Cont.VTI: 1.75 LVOT LVOT Pk Terrence: 0.93 LVOT Mn Terrence: 0.68 LVOT VTI: 0.26 LVOT Pk Grad: 3.00 LVOT Mn Grad: 2.00 LVOT Diam: 2.40 LVOT Area: 4.52 Diastolic Function MV Pk E: 1.04 MV Pk A: 1.28 E/A: 0.80 E'Medial: 4.79 E/E' Med: 21.70 E' Laterial: 5.55 E/E' Lat: 18.70 Right Ventricle TAPSE (mm): 21.40 TVS' Terrence: 12.90 Tricuspid Valve TR Pk Terrence: 2.70 TR Pk Grad: 29.00 RA Press: 8.00 RVSP: 37.00 Great Vessels Aorta Ao Asc: 3.80 2.1-3.4 cm Updated in Other Vendor System with Status of Final Cosme Sanchez MD electronically signed on 02/08/2025 10:34:04 AM with status of Final
--- OUTSIDE RECORDS SUMMARY | 2025-02-06 14:33 | XMS_ITS ---
Author Organization [address] Address [address] [place] [id number] Phone Care Team Providers Care Global Safety Officer Name Role Phone Skyler Graves Primary Care Provider [phone] Transitional Care Management Status:Ongoing (Active) Start date:01/08/2025 Enrollment date:01/09/2025 Enrollment reason:Identified using hospital discharge data Case Team Name Relationship Phone Aaliyah Quesada LPN Care Manager(Responsible Staf f) [phone] Continued Care and Services Coordination
== END ==
LOC: HO.CARD 13:50
PROVIDERS: PCP Physician Assistant Medical; Visit Provider Internal Medicine Cardiovascular Disease
DX: Z95.2 Presence of prosthetic heart valve (principal)
CPT/HCPCS: 93306; Q9957

== ENCOUNTER → 2025-02-06 13:54 | Outpatient (BNV) | payer MEDICARE, SELFPAY | PROVIDERS: PCP Physician Assistant Medical; Visit Provider Internal Medicine | DX: Z95.2 Presence of prosthetic heart valve (principal); I51.7 Cardiomegaly; I36.1 Nonrheumatic tricuspid (valve) insufficiency | CPT/HCPCS: 93306 ==

== ENCOUNTER 2025-03-04 15:05 | Outpatient (AMB) | payer MEDICARE, SELFPAY ==
[2025-03-04 15:30] VITALS: BP 118/78; PULSE 63; BMI 42.2
--- NOTE | 2025-03-04 15:30 | MHC.OFFVIS ---
Vital Signs 03/04/25 15:30 Height 5 ft 11 in Weight 302 lb 7.587 oz BMI 42.2 BP 118/78 Blood Pressure Location Lt brachial Position Sitting Pulse 63 Pulse Source Monitor Intake Visit Reasons: TAVR f/up- 01/07 Drugless Doctor Required: No Accompanied by: Self / Same As Patient Allergies No Known Allergies Allergy (Verified 03/04/25 15:33) Medication List - Last Reconciled 03/04/25 by Franklin Gentile NP aspirin (Adult Low Dose Aspirin) 81 mg PO DAILY atorvastatin 80 mg PO DAILY blood sugar diagnostic (FreeStyle Lite Strips) As directed glipizide 5 mg PO BID ibuprofen-diphenhydramine cit 200-38 mg (Advil PM) 2 caps PO BEDTIME lisinopril 20 mg PO DAILY metformin 1,000 mg PO BID metoprolol tartrate 50 mg PO BID [id number] mcg (Centrum Minis Men 50 Plus) tabs PO DAILY pioglitazone 30 mg PO DAILY pregabalin 150 mg PO BID HPI Comments Details: This is a 70-year-old male patient coming in for a follow-up visit status post TAVR. Patient with history of obesity, hypertension, diabetes, hyperlipidemia, coronary artery disease, and severe aortic stenosis who underwent TAVR with Dr. Feng at [facility] on 01/07/2025. Today, patient reports feeling much better overall with resolved symptoms of shortness of breath with activity. Patient is also denying any exertional chest pain, palpitations, dizziness, orthopnea, PND, leg edema, presyncope or syncope. Patient is reporting compliance with all his medications. Patient is stating that he never went to the cardiac rehab and would like to just do his regular activities at home. Patient also mentions that he has quit smoking completely for which he was commended. [facility] Medical History Atherosclerotic cardiovascular disease Morbid obesity HUBERT (obstructive sleep apnea) Hyperlipidemia Essential hypertension Type 2 diabetes mellitus Surgical History History of back surgery Family History Mother Cancer Father Cancer Social History Alcohol intake: never Patient Tobacco Use Status: Current everyday Tobacco user Tobacco use type: Cigar Years Smoked: 20 +/- Review of Systems Const Denies daytime sleepiness, Denies difficulty sleeping, Denies snoring, Denies stops breathing during sleep and Denies weakness Card Denies chest pain, Denies rapid heart rate, Denies irregular heart rhythm, Denies claudication, Denies leg edema, Denies lightheadedness, Denies palpitations, Denies dyspnea, Denies dyspnea on exertion, Denies orthopnea, Denies paroxysmal nocturnal dyspnea and Denies slow heart rate Resp Denies cough, Denies dyspnea, Denies dyspnea on exertion and Denies snoring GI Reports no additional complaints, Denies hematochezia, Denies change in stool character and Denies dyspepsia Musc Denies abnormal gait, Denies muscle weakness and Denies numbness Neuro Denies abnormal gait, Denies numbness and Denies weakness Endo Denies palpitations Physical Exam Vital Signs: Last Vital Signs Pulse 63 03/04/25 15:30 BP 118/78 03/04/25 15:30 BMI result Body Mass Index 42.2 Const General: cooperative, healthy appearing, comfortable and no acute distress Orientation/consciousness: patient oriented x3 HEENT Head: Yes normal to inspection Neck Neck: Yes normal visual inspection, Yes trachea midline and Yes supple Chest Chest palpation & inspection: normal inspection of the chest Resp Effort & Inspection: normal respiratory effort Auscultation: clear to auscultation bilaterally, no crackles, no rales, no rhonchi and no wheezes Cardio Jugular venous distension: no JVD Palpation: normal PMI Rate: regular rate Rhythm: regular rhythm Heart sounds: S1 normal heart sound present, S2 normal heart sound present, no click, no gallops, no murmurs and no rubs Peripheral pulses: Peripheral pulses 2+ throughout GI Inspection: Yes normal to inspection Palpation (GI): Soft to palpation Auscultation: normal bowel sounds Skin General skin exam: no rashes or lesions noted Neuro General: patient oriented x3 Extrem General: Yes normal to inspection, No no pedal edema and No calf tenderness Psych Appearance: grossly normal Mental Status: mental status grossly normal Speech and movement: Normal speech and movement present Office Procedures EKG Details: EKG today showed normal sinus rhythm, rate 63 beats per minute, [place], [place]. [id number], Complete Assessment & Plan Assessment & Plan (1) S/P TAVR (transcatheter aortic valve replacement): Code(s): Z95.2 - Presence of prosthetic heart valve Category: Surgical Plan: Patient with a history of severe aortic valve stenosis and dyspnea on exertion who underwent TAVR with Dr. Feng at [facility]. On 01/07/2025, patient has successful deployment of 29 mm S3 Resilia. 02/06/2025-patient had an echo that showed a normal LV systolic function with an ejection fraction between 55-60% and a normal functioning bioprosthetic aortic valve with a mean gradient of 15 mmHg. Patient is not undergoing cardiac rehab. Patient states he is time to stay more active at home and has quit smoking. Continue aspirin therapy. Discussed with the patient about infective endocarditis prophylaxis and the need for antibiotic prophylaxis before procedures such as dental work. Patient states he has upcoming labs with PCP including CBC, BNP, lipid panel. Requested patient to have them fax the results to our office as well. (2) Non-rheumatic aortic stenosis: Code(s): I35.0 - Nonrheumatic aortic (valve) stenosis Category: Medical Plan: As above. (3) Atherosclerotic cardiovascular disease: Code(s): I25.10 - Atherosclerotic heart disease of [place] coronary artery without angina pectoris Category: Medical Plan: Patient underwent cardiac catheterization before aortic valve placement on 10/15/2024 that showed 40% mid PDA stenosis and 60-70% mid LAD stenosis. Currently without any anginal symptoms. Continue baby aspirin and high-dose statin therapy. Continue metoprolol therapy. Continue aggressive management of vascular risk factors. (4) Morbid obesity: Code(s): E66.01 - Morbid (severe) obesity due to excess calories Category: Medical Plan: Advised heart healthy diet, losing weight, exercise, med compliance, continue with smoking cessation, and aggressive management of vascular risk factors. Follow up in 6 months. In the interim, patient will call the office with any concerns or change in symptoms. Advised to seek ER care in case of exertional chest pain not resolved with rest. This note was generated using voice recognition software. While every effort has been made to ensure accuracy and proper agate setter, there may be occasional errors that could affect the content or meaning of the described symptoms. Orders: Orders AMB EKG-In Office Today Z95.2 - Presence of prosthetic heart valve Coding Level of Care Code Est Pt Level 4 (91769) Complex EM visit Add On G2211 Diagnoses S/P TAVR (transcatheter aortic valve replacement) Z95.2 Non-rheumatic aortic stenosis I35.0 Atherosclerotic cardiovascular disease I25.10 Morbid obesity E66.01 CPT Codes EKG - CPT: 61844-[id number], Complete ([id number]) Time Spent (min) 31 Comment Time spent in reviewing the chart, test results, assessment, counseling and documentation.
--- OUTSIDE RECORDS SUMMARY | 2025-03-04 15:57 | XMS_ITS ---
Author Name [facility] Organization Unknown Care Team Organization Name Specialty Phone Email Start Date End Da te [facility] Skyler Graves Primary Care 05/31/2022
--- OUTSIDE RECORDS SUMMARY | 2025-03-04 15:57 | XMS_ITS | Clinical Summary ---
Author Organization [address] Address [address] [place] [phone] Phone Care Team Providers Care Log Sorter Name Role Phone Skyler Graves Primary Care Provider [phone] Allergies Active Allergy Reactions Criticality Noted Date [...] times a day with meals. 4 Active ciclopirox (PENLAC) 8 % solution [...] flash glucose scanning reader (FreeStyle Dianelys 2 [place]) misc 1 each if needed (glucose monitoring). 1 each 5 Active flash glucose sensor (FreeStyle Dianelys 2 Sensor) kit 1 EA every 14 (fourteen) days. Box = Kit = EA 2 each 11 5 Active blood sugar diagnostic (FreeStyle Lite Strips) test strip TEST THREE TIMES A DAY NEEDED 300 each 3 5 Active metoprolol tartrate (LOPRESSOR) 50 mg tablet Take 1 tablet (50 mg total) by mouth 2 (two) times a day. 180 tablet 5 Active Active Problems Problem Noted Date [...] spine. 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 11/03/2006 Overview (06/17/2024): IMO update Morbid obesity ([facility] V24, [facility] V28) 2006 Tobacco use disorder 11/03/2006 Encounters Date Type Department Care Team Description 01/17/2025 2:00 PM EDT Office Visit Adult Medicine [address] [phone] Skyler Graves PA Hospital discharge follow-up (Primary Dx); S/P TAVR (transcatheter aortic valve replacement); Morbid obesity ([facility] V24, [facility] V28); Tobacco use disorder; Primary hypertension; Uncontrolled type 2 diabetes mellitus with hyperglycemia ([facility] V24, [facility] V28); Coronary artery disease due to lipid rich plaque from Last 3 Months Immunizations Name Administration [...] Surgery Date Site/Laterality Comments COLONOSCOPY 12/05/2008 PROCEDURE: NV COLONOSCOPY FLX DX W/COLLJ SPEC WHEN PFRMD; [...] care for your loved ones. For example, registered nurse maternal child or elderly care for an older adult? [...] Sign Reading Time Taken Comments Blood Pressure 122/61 01/17/2025 1:49 PM EDT Pulse 62 01/17/2025 1:49 PM EDT Temperature 36.2 C (97.1 F) 01/17/2025 1:49 PM EDT Respiratory Rate 14 01/17/2025 1:49 PM EDT Oxygen Saturation - - Inhaled Oxygen Concentration - - Weight 133 kg (292 lb 9.6 oz) 01/17/2025 1:49 PM EDT Height 180.3 cm (5' 11 ) 01/17/2025 1:49 PM EDT Body Mass Index 40.81 01/17/2025 1:49 PM EDT Plan of Treatment Upcoming Encounters Date Type Department Care Team (Late st Contact Info) Description 03/17/2025 1:00 PM EDT Office Visit Adult Medicine [facility] [address] [place] [phone] Skyler Graves PA [address] [place] [address] Health Maintenance Due Date Last Done Comments Zoster Vaccines (1 of 2) 01/19/2006 RSV Immunization Adult Patients (1 - Risk 60-74 years 1-dose series) 2016 Medicare Annual Wellness Visit 07/02/2022 COVID-19 Vaccine ( season) 2024 08/18/2021, 11/27/2020, 11/06/2020 Diabetes: Annual Retina Eye Exam 08/11/2024 08/11/2023 Diabetes: Annual Foot Exam 02/19/2025 02/20/2024 Influenza Vaccine (#1) 2025 , 05/12/2023, 04/11/2022, Additional history exists Diabetes: Blood Sugar Control Test (HGBA1C) 05/28/2025 11/25/2024, 08/02/2024, 02/16/2024, Additional history exists Falls Risk Assessment 08/07/2025 08/07/2024, 023 Diabetes: [...] Vaccine: 50+ Years Completed 02/20/2024, 04/11/2022, 04/11/2011 Depression Screening Completed 07/31/2024, 02/20/20 24 HIB Vaccines Aged Out No longer eligi [...] Procedure Name Priority Date/Time Associated Diagnosis Comments MICROALBUMIN CREATININE URINE RATIO Routine 11/25/2024 1:29 [...] lipid rich plaque Disorder of lipoid metabolism DEPRESSION SCREENING Routine 02/20/2024 DIABETES FOOT EXAM Routine 02/20/2024 FIT-DNA Routine 08/30/2023 DIABETES EYE EXAM Routine 08/11/2023 FALLS RISK ASSESSMENT Routine 07/14/2023 ABDOMINAL AORTIC ANEURYSM SCRREN Routine 04/07/2021 HEPATITIS C SCREENING Routine 02/15/2015 from Last 3 Months or Most Recently Relevant to Health Maintenance Results * (ABNORMAL) Lipid panel with reflex to direct LDL (11/25/2024 1:29 PM EDT) Cholesterol 106 0 - 200 mg/dL LAB CHEMISTRY METHOD 11/25/2024 4:58 PM EDT [facility] Triglycerides 243(H) 0 - 150 mg/dL LAB CHEMISTRY METHOD 11/25/2024 4:58 PM EDT [facility] HDL 30(L) >=40 mg/dL LAB CHEMISTRY METHOD 11/25/2024 4:58 PM EDT [facility] LDL Calculated 27 0 - 100 mg/dL LAB CHEMISTRY METHOD 11/25/2024 4:58 PM EDT [facility] VLDL Cholesterol Munir 48.6 mg/dL LAB CHEMISTRY METHOD 11/25/2024 4:58 PM EDT [facility] Non HDL Chol. (LDL+VLDL) 76 <145 mg/dL LAB CHEMISTRY METHOD 11/25/2024 4:58 PM EDT [facility] Chol/HDL Ratio 3.5 0.0 - 4.4 LAB CHEMISTRY METHOD 11/25/2024 4:58 PM EDT [facility] Blood Venous blood specimen / Unknown Venipuncture / Unknown 11/25/2024 1:29 PM EDT 11/25/2024 1:29 PM EDT us Skyler CHASE LAB BLOOD ORDERABLES Cherry l Result [facility] [address] [place] [address], [place] [phone] * Microalbumin creatinine urine ratio (11/25/2024 1:29 PM EDT) Creatinine, Urine 61.0 mg/dL LAB CHEMISTRY METHOD 11/25/2024 5:42 PM EDT [facility] Microalb, Ur <5.0 0.0 - 29.0 mg/L LAB CHEMISTRY METHOD 11/25/2024 5:42 PM EDT [facility] Microalb/Creat Ratio <8 <30 mg/g creat LAB CHEMISTRY METHOD 11/25/2024 5:42 PM EDT [facility] Urine Urine specimen obtained by clean catch procedure / Unknown Non-blood Collection / Unknown 11/25/2024 1:29 PM EDT 11/25/2024 1:29 PM EDT Skyler CHASE LAB URINE ORDERABLES Cherry l Result [facility] [address] [place] [address], [place] [phone] * (ABNORMAL) Hemoglobin A1c (11/25/2024 1:29 PM EDT) Hemoglobin A1C 6.7(H) <6.5 % LAB CHEMISTRY METHOD 11/25/2024 9:08 PM EDT [facility] Mean Bld Glu Estim. 146 mg/dL LAB CHEMISTRY METHOD 11/25/2024 9:08 PM EDT [facility] Blood Venous blood specimen / Unknown Venipuncture / Unknown 11/25/2024 1:29 PM EDT 11/25/2024 1:29 PM EDT Skyler CHASE LAB BLOOD ORDERABLES Cherry l Result [facility] [address] [place] [address], * (ABNORMAL) Comprehensive metabolic panel (11/25/2024 1:29 PM EDT) Sodium 140 133 - 145 mmol/L LAB CHEMISTRY METHOD 11/25/2024 4:58 PM EDT [facility] Potassium 4.6 3.5 - 5.5 mmol/L LAB CHEMISTRY METHOD 11/25/2024 4:58 PM EDT [facility] Chloride 110 96 - 110 mmol/L LAB CHEMISTRY METHOD 11/25/2024 4:58 PM T [facility] CO2 23 21 - 32 mmol/L LAB CHEMISTRY METHOD 11/25/2024 4:58 PM [facility] Anion Gap 7 3 - 11 LAB CHEMISTRY METHOD 11/25/2024 4:58 PM [facility] Glucose 112(H) 70 - 100 mg/dL LAB CHEMISTRY METHOD 11/25/2024 4:58 PM [facility] BUN 27(H) 5 - 25 mg/dL LAB CHEMISTRY METHOD 11/25/2024 4:58 PM [facility] Creatinine 1.24 0.70 - 1.30 mg/dL LAB CHEMISTRY METHOD 11/25/2024 4:58 PM [facility] eGFR 63 >=60 mL/min/1. 73m2 LAB CHEMISTRY METHOD 11/25/2024 4:58 PM [facility] Comment:Calculation based on the Chronic Kidney Disease Epidemiology Collaboration (CKD-EPI) equation refit without adjustment for race. BUN/Creatinine Ratio 21.8 LAB CHEMISTRY METHOD 11/25/2024 4:58 PM [facility] Calcium 9.1 8.5 - 10.5 mg/dL LAB CHEMISTRY METHOD 11/25/2024 4:58 PM [facility] AST (SGOT) 20 10 - 42 unit/L LAB CHEMISTRY METHOD 11/25/2024 4:58 PM EDT [facility] ALT (SGPT) 27 10 - 60 unit/L LAB CHEMISTRY METHOD 11/25/2024 4:58 PM EDT [facility] Alkaline Phosphatase 192(H) 42 - 121 unit/L LAB CHEMISTRY METHOD 11/25/2024 4:58 PM EDT [facility] Total Protein 7.1 6.0 - 8.0 g/dL LAB CHEMISTRY METHOD 11/25/2024 4:58 PM EDT [facility] Albumin 3.8 3.2 - 5.0 g/dL LAB CHEMISTRY METHOD 11/25/2024 4:58 PM EDT [facility] Total Bilirubin 0.3 0.0 - 1.4 mg/dL LAB CHEMISTRY METHOD 11/25/2024 4:58 PM EDT [facility] Blood Venous blood specimen / Unknown Venipuncture / Unknown 11/25/2024 1:29 PM EDT 11/25/2024 1:29 PM EDT Skyler CHASE LAB BLOOD ORDERABLES Cherry l Result [facility] [address] [place] [address], * Depression Screening (02/20/2024) [facility] Depression Screening Abstracted Historical Provider HEALTH MAINTENANCE Final Result * Diabetes Foot Exam (02/20/2024) [facility] Diabetes: Annual Foot Exam Abstracted Historical Provider HEALTH MAINTENANCE Final Result * FIT-DNA (Cologuard) (08/30/2023) [facility] Colorectal Cancer Screening: FIT-DNA (Cologuard) Normal, Abstracted Historical Provider HEALTH MAINTENANCE Final Result * Diabetes Eye Exam (08/11/2023) Pathologist [facility] Diabetes: Annual Retina Eye Exam Abstracted Historical Provider HEALTH MAINTENANCE Final Result * Falls Risk Assessment (07/14/2023) Pathologist [facility] Falls Risk Assessment Abstracted [facility] Provider HEALTH MAINTENANCE Final Result * Abdominal Aortic Aneurysm Screen (04/07/2021) Pathologist [facility] Abdominal Aortic Aneurysm (AAA) Screening Abstracted Anatomical Region Laterality Modality Other [facility] Provider HEALTH MAINTENANCE Final Result * Hepatitis C Screening (02/15/2015) Pathologist [facility] Hepatitis C Screening Abstracted [facility] Provider HEALTH MAINTENANCE Final Result from Last 3 Months or Most Recently Relevant to Health Maintenance Insurance MEDICARE [facility] Care Teams Log Sorter Relationship Specialty Start Date End Date Skyler Graves PA [address] [place] [address] PCP - General Internal Medicine 03/11/21
== END 2025-03-04 16:10 | disposition home or self-care (01) ==
LOC: HO.HCS 15:06
PROVIDERS: PCP Physician Assistant Medical
DX: Z95.2 Presence of prosthetic heart valve (principal); I35.0 Nonrheumatic aortic (valve) stenosis; I25.10 Atherosclerotic heart disease of native coronary artery without angina pectoris; E66.01 Morbid (severe) obesity due to excess calories
CPT/HCPCS: 93010; 99214; G2211

== ENCOUNTER → 2025-03-04 15:05 | Outpatient (BNVA) | payer MEDICARE, SELFPAY | PROVIDERS: PCP Physician Assistant Medical | DX: I35.0 Nonrheumatic aortic (valve) stenosis (principal); I25.10 Atherosclerotic heart disease of native coronary artery without angina pectoris; E66.01 Morbid (severe) obesity due to excess calories; Z95.2 Presence of prosthetic heart valve; Z68.41 Body mass index [BMI] 40.0-44.9, adult | CPT/HCPCS: 93005; 99212 ==